=== PATIENT | female | born 1990 | race Caucasian/White ===

== ENCOUNTER 2023-01-19 14:20 | Outpatient (OUT) | payer OTHER, SELFPAY ==
--- NOTE | 2023-01-19 16:07 | MISC_ITS ---
CONSULTATION DATE: ??01/19/2023 TO:? Mireille RUBY Varela CHIEF COMPLAINT:? Left lower back pain. HISTORY:? She reports the pain as being 5-7/10 pain, sharp in character, increased with activities such as standing, walking and performing transitioning maneuvers.? She feels most comfortable in the semi-recumbent position.? She denies any change in bowel and bladder habits or new sensorimotor change in the lower extremities. ? EXAMINATION:? Notable for patient having no clinical radiculopathy or myelopathy involving the lower extremities on today?s visit.? Patient did have severe pain with lumbar facet joint loading maneuvers on the left side at L4-5, L5-S1 with associated myofascial spasm of the lumbar paravertebral muscles.? We have also noted that the patient had significant myofascial spasm of the left hip flexors and extensors. IMPRESSION:? Our impression is patient has chronic pain secondary to lumbosacral spondylosis with facet joint loading pain clinically on the left side at L4-5, L5-S1, with associated myofascial spasm involving the left hip flexors and extensors, with reduced range of motion. ? RECOMMENDATIONS:? Our recommendation is to proceed with a diagnostic left sided L4-5, L5-S1 facet joint injection under fluoroscopic guidance.? I have asked her to change her Motrin to 800 mg around the clock from 800 mg p.r.n., and lastly physical therapy to address her left hip issues.? As part of providing excellent, safe, comprehensive care, the following was completed at our patient's visit: 1. A medication reconciliation and review to ensure accurate knowledge of current/active medications, including asking our patients to inform us about any [id number] medications or herbal remedies/nutritional supplements/alternative remedies. 2. A review to specifically ensure our patients have had annual screening for: elevated body mass index (BMI, see intake chart for exact total), tobacco use, screening for depression, and screening for unhealthy alcohol use.? When screening is concerning, patients are provided with education and the specific recommendation to discuss the concerning health issue and treatment options with their primary care provider. DESIRAE
== END 2023-01-19 14:21 ==
LOC: PM 14:21
PROVIDERS: PCP Nurse Practitioner; Visit Provider Anesthesiology Pain Medicine
DX: M54.50 Low back pain, unspecified (principal); G89.29 Other chronic pain; M47.817 Spondylosis without myelopathy or radiculopathy, lumbosacral region; M62.838 Other muscle spasm
CPT/HCPCS: G0463

== ENCOUNTER 2023-03-30 09:29 | Day surgery (SDC) | payer OTHER, SELFPAY ==
[2023-03-30 09:45] LABS: HCG Qualitative NEGATIVE (NEGATIVE)
[2023-03-30 09:59] VITALS: BP 92/71; PULSE 83; RESP 16; TEMP 36.8; O2SAT 99
[2023-03-30 10:53] VITALS: RESP 20
[2023-03-30] MEDS: BUPIVACAINE HCL 0.25% PF 25 MG/10 ML VIAL 5 ML INJ (10:56)
[2023-03-30 10:57] VITALS: BP 112/72; BP 117/71; PULSE 72; PULSE 73; O2SAT 98; O2SAT 99
--- NOTE | 2023-03-30 11:12 | P.ON_ITS ---
Date of procedure: 03/30/23 Pre-op diagnosis: lumbar spondylosis Post-op diagnosis: same as pre-op Procedure: Left lumbar 4/5, 5/S1 facet injection Under fluoroscopic guidance Solution injected: 2millilitersMarcaine 0.25% Anesthesia :none Immediate complications none Time out process compliant After informed consent obtained from the patient placed in the Prone proposition . area was prepped and draped in a sterile fashion using betadine. 25 gauge spinal needle inserted over each of the above mentioned target areas . [place] were directed towards the target under fluoroscopic guidance . after encountering each of the targets , no indication of intravascular intraneuronal or intrathecal needle tip placement. Then 0 .5 to 1 Milliliter was injected at each level. [place] removed postoperatively. patient transferred to recovery in stable condition to be discharged home after meeting criteria Anesthesia: Local Surgeon: Sadie Galvez Condition: stable
== END 2023-03-30 11:03 | disposition home or self-care (01) ==
LOC: SURGOUT 09:29
PROVIDERS: PCP Nurse Practitioner; Visit Provider Anesthesiology Pain Medicine
DX: M47.816 Spondylosis without myelopathy or radiculopathy, lumbar region (principal)
CPT/HCPCS: 36415; 64493; 64494; 84703

== ENCOUNTER 2023-04-14 13:51 | Outpatient (OUT) | payer OTHER, SELFPAY ==
--- NOTE | 2023-04-14 14:08 | PM.CN ---
Consult Note: HPI Data of Consult Patient: known to practice within the last 3 years Requesting Physician: Chandrika Wilson NP Primary Care Provider: Mireille Varela Consult Narrative Reason for consult: f/u left l4/5 l5/s1 facet injection Narrative: Destini Still a pleasant 33 year old female presents for evluation of chronic low back pain. Patient recently underwent a left sided L4/5 L5/1 facet injection with 90% pain relief and functional improvement immediately following and for hours after the injection. Patient would like to proceed with left l4/5 l5/s1 facet injection #2 working towards thermal RFA. Today rating pain 5/10 while on gabapentin 300mg HS. cc:: CC: Chandrika Wilson NP Review of Systems ROS Status of ROS 10 or more systems reviewed and unremarkable except as noted in history and below Musculoskeletal Reports: back pain PFSH PFSH Surgical History Meds Home Medications and Allergies Home Medications Medication Instructions Recorded Confirmed Type gabapentin 300 mg capsule 300 mg PO DAILY 01/19/23 03/30/23 History ibuprofen 800 mg tablet 800 mg PO TID PRN pain 01/19/23 03/30/23 History Allergies Allergy/AdvReac Type Severity Reaction Status Date / Time No Known Drug Allergies Allergy Verified 03/30/23 09:57 Exam Constitutional Documenting provider has reviewed patient's vital signs: yes Common normals: no apparent distress, average body habitus, oriented x3, no limitations, healthy appearing, alert and well nourished General appearance: cooperative [facility] Common normals: normocephalic, hearing grossly normal bilaterally and moist oral mucous membranes Head and scalp: normocephalic Eye Common normals: PERRL Pupil: PERRL Neck & C-Spine Common normals: full ROM General: normal visual inspection Chest Common normals: inspection of chest normal Respiratory Common normals: normal respiratory effort, no retractions and no use of accessory muscles Back & Pelvis Lumbar spine/lower back: ROM limited, pain with ROM, paraspinal muscle tenderness and straight leg raise negative bilaterally Pelvis: buttocks normal Sacroiliac joints: SI joints normal Other: positive facet loading L sided pain. predominately axial low back pain without radiculopathy Extremity Common normals: normal to inspection and full ROM Neuro Common normals: oriented x3, CN's II-XII intact bilaterally, moves all extremities, no focal motor deficits, no sensory deficits noted, deep tendon reflexes 2+ bilaterally and gait normal Sensorium/orientation: alert Motor exam: strength 5/5 throughout and no movement abnormalities noted Psych Common normals: mental status grossly normal, thought process normal, cooperative, affect normal, speech normal and activity/motor behavior normal Speech: normal speech Thought process: normal thought process Results Additional Findings Additional findings: I have checked an [place]AR[place] report on this patient today and there are no aberrancies noted in the prescribing history.?? A drug screen was completed and reviewed within the last year, and if there has not been a drug screen completed we ordered one today to monitor higher risk, state monitored pain medication use. As part of providing excellent, safe, comprehensive care, the following was completed at our patient's visit: 1. A medication reconciliation and review to ensure accurate knowledge of current/active medications, including asking our patients to inform us about any [id number] medications or herbal remedies/nutritional supplements/alternative remedies. 2. A review to specifically ensure our patients have had annual screening for: elevated body mass index (BMI), tobacco use, screening for depression, and screening for unhealthy alcohol use. When screening is concerning, patients are provided with education and the specific recommendation to discuss the concerning health issue and treatment options with their primary care provider. The patient has had over 3 months of moderate to severe low back pain with functional impairment and inadequate response to conservative care including NSAIDS (unless there are contraindication such as concurrent blood thinners), multiple oral or topical pain medications, and home exercise program/physical therapy.? Patient has completed >6 weeks of guided home exercise program and/or formal physical therapy program without relief of their symptoms.? I have reviewed the imaging of the lumbar spine and no red flags were identified.? The imaging reveals radiographic findings consistent with lumbar facet arthropathy. The Oswestry Disability Index was completed, and the patient scored a 22%.? The patient noted the following:?? moderate pain, pain that interferes with ADLs, pain that restricts lifting, pain that interferes with travel We discussed the risks and benefits of the procedure with the patient, and we are NOT planning on using sedation as outlined in the guidelines from Medicare unless there is a documented reason that sedation would be strongly recommended.?? The procedure will be completed with fluoroscopic guidance.? Assessment and Plan Assessment and Plan (1) Lumbar spondylosis: Plan proceed with Left l4/5 l5/s1 facet injection #2 under fluoroscopy working towards thermal radiofrequency ablation for pain and functional improvement f/u after procedure
== END 2023-04-14 13:52 | disposition home or self-care (01) ==
LOC: PM 13:51
PROVIDERS: PCP Nurse Practitioner; Visit Provider Nurse Practitioner
DX: M47.816 Spondylosis without myelopathy or radiculopathy, lumbar region (principal); Z79.891 Long term (current) use of opiate analgesic; M79.18 Myalgia, other site
CPT/HCPCS: G0463

== ENCOUNTER 2023-08-05 07:59 | Day surgery (SDC) | payer OTHER, SELFPAY ==
[2023-08-05 08:30] LABS: HCG Qualitative NEGATIVE (NEGATIVE)
[2023-08-05 08:39] VITALS: BP 98/66; PULSE 70; RESP 16; TEMP 37; O2SAT 99
[2023-08-05 09:41] VITALS: BP 98/63; PULSE 65; RESP 18; O2SAT 94
[2023-08-05 09:42] VITALS: BP 102/65; PULSE 69; RESP 18; O2SAT 97
[2023-08-05] MEDS: BUPIVACAINE HCL 0.25% PF 25 MG/10 ML VIAL 3.5 ML INJ (09:44)
--- NOTE | 2023-08-05 10:37 | W.PM.PROCNOT ---
Date of procedure: 08/05/23 Pre-op diagnosis: Lumbar spondylosis Post-op diagnosis: same as pre-op Procedure: Left lumbar 4/5, 5/Sacral 1 facet injection Under fluoroscopic guidance Solution injected: 2millilitersMarcaine 0.25% Anesthesia :none Immediate complications none Time out process compliant After informed consent obtained from the patient placed in the Prone proposition . area was prepped and draped in a sterile fashion using betadine. 25 gauge spinal needle inserted over each of the above mentioned target areas . [place] were directed towards the target under fluoroscopic guidance . after encountering each of the targets , no indication of intravascular intraneuronal or intrathecal needle tip placement. Then 0 .5 to 1 Milliliter was injected at each level. [place] removed postoperatively. patient transferred to recovery in stable condition to be discharged home after meeting criteria Anesthesia: Local Surgeon: Sadie Galvez Condition: stable
== END 2023-08-05 09:46 | disposition home or self-care (01) ==
LOC: SURGOUT 08:00
PROVIDERS: PCP Nurse Practitioner; Visit Provider Anesthesiology Pain Medicine
DX: M47.816 Spondylosis without myelopathy or radiculopathy, lumbar region (principal)
CPT/HCPCS: 36415; 64493; 64494; 84703

== ENCOUNTER 2023-08-12 15:05 | Outpatient (OUT) | payer OTHER, SELFPAY ==
--- OUTSIDE RECORDS SUMMARY | 2023-08-12 15:08 | XMS_ITS | CCD ---
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 VnwX81hLLxKCkaJs6dl2G9 w695BQWuHQGlvG21Wz8xpI ogMTBwdCBU rI8defulk9jktetyXoFtRX JtEJm4YDg9XRXfuPsbLsDy GDK4DyR3TCV3oNUcmQ2xmC dyhakcvB4e Oyc+I14ewM8nURR5ACU1qq nxICIadvMsFL99KW41V2Nd PjwvdGFibGU+PGRpdiBzdH seIL7uNjLf p0fnm8LgKCqsI7ScLMOlTZ irPst8FGOnBEB3uLZ9hZ9m FXIfBVupb7G8aYX6R6Wszu Xqil3ix6wq HOYrMNmfR36huYUio1K5PP BugYW0SKJyvWkoYiNywI36 Oyc+QWPbdHsqz4BnEgbgj9 qct3fepPw7 FkLhUXHevhCvpImmMEK1n0 HpJq69W73cLGvjOUKyPTSt RQExNIEroRbtyp8seC3aKz 8+PGNvbCB3 cKH4dE7hOQGlLmP5VSopM8 70YkKyoSEaTyelz1ive8gu lBv5WdTvQZFkwjHhbRmcVM E6z8XaGn02 T27vLGvhUMGrYEBgJSWlIR DrxKtati6riJ8tKo5+PC9j q0duqu17yQ49qTL+PHRkIH K9hYqkYUir ACOmiO0nLXnaIbQ3DNItDh MplH44zXRuISepMm1tkKkt lAohVE2iYAOwljput774Oa Btp2hbQYHg vJTtQNxkWHG6F61rq4D9JN QiKRWlZGB6nMW3xW5twIjs bjogbGVmdDsgdmVydGljYW scBJjqM449 IHRvcDsnPlBhdGllbnQgTm VnNOv7S0DmPky5TXNssDtv AA7bbZWsMJnsZz2ulUqxqI kaPK2tOGGv eqjab831ZuYha1pcZFCqqQ BcRIhsLHP9E77nf8Y9ENYq HGQwRXQ9jHT0bQ8ilAlbkn ogbGVmdDsg drMhjXbjCEymCSacG354OE RvcDsnPkJpcnRoIERhdGU6 WZ45MM52kWWoc4A3cDG0T4 BhZGRpbmct oinrgYT5GUDbTTNzpU58Ba 6raZcmAg7ySROhCAO8SOPf uGZrF8SbpL4gZyHpSNOfFB PhM5ZwuDSd MGxeI779AJvsDmG9VIBvul LyX6YgIUQilNecPhO8l2U7 Vy6JJ6G5EB15IG14qVWnw9 Z2uNT4S1Zw PUYgmhtlliuoxAU0TCWsOV XqfB91Dl7lqUnaLd3jXORp BVL0LGXzzASgG5ZcrV5sIi AjMDAwMDAw Y1MqoPYbRMxzS919IDzlNw Q3CXVdewZwS8WnYJWfmLto QtL4l7Z0Up7BXZk0VH29HF 38aCLfm7W6 iLV5N2XxPLBwvscgbfhliR X4QNKpIZWpkN45Rs6lnAim Sm4cXFDuNZD3KCMfkQJrX6 SsjP6kMvFh GQHxMOXqR9ImuDPoKZdcW5 06KDxuYjY3ZQUnriQvV3Ut WJIdiZykOsF3m5G0Wp8KKJ OdKE47JRT9 wDA7WX81EF12W0UwOqpnaZ FibGU+PHRhYmxlIHdpZHRo FHozPFDnOxFygRjwXW9nRr 9yZGVyLWNv pAfzuROyGcFtu0xnNUZwNC qtVD7zaFshD2GauNR2RGOl a7b0Yr22G82qK1PekLI+PG MxpWE3yIX7 aY8aQkEuUqM0EKqsH671Du IreKNkLjvaw9zke3mygIq1 QfC3QAPrloJxsAzbUWE0l2 FeMd96F24p IHdpZHRoPSIxNSUiIHZhbG npqf1gvQ8iKo6+PGNvbCB3 kGF8uW0qDdUdOqM1SSbiK1 49InRvcCIv Skvuw5csk9zbuGl3IoKvBF PecwFijMtyMBP9i3AdWk07 Y6ZbmAirw5HkSlq2qe51qH Ase9E8rAZ0 X1JlWXQtdqijfVOkaQheOK 7fMATpfyiqLVQrzX6vPWRk Q4d4GnDyUtA8LYetW8Ytqk K9GGWtvPJw RYwtEAM8B89vo1D3EAKpGJ IkHBV2dEQ0bY9caUybtbed bGVmdDsgdmVydGljYWwtYW ixY808HOTy iUgiANPkiA2jVKPwzVGcgW beMR0aMUNumvkcGylIZpPB RSwgQlJJVFRBTlkgTDwvdG Q+PHRkIHN0 fVayNLaiUEAybM4pZZDhS6 w0OhNbXlX7IRoyF0HtTPGh kbceJy70cB2wBjCcXlG4HW puA9FjyoV9 XGBzgYVqYOjzHZU6P36il9 I5SVIrMUFbCHB5dED9xB0y bGlnbjogbGVmdDsgdmVydG ljYWwtYWxp B568GZEhgHkhJqO6ErRqBs X5FSu9O1PtFmw8KSYywKkg RB0qxSQeNYahAi9ubKszoQ leTQ1vRBAb wocvDYCglS7yLUKozFOuhO hkKE9uVPBkdkenw696NdCy IUM8WJEnxWMoN2VaaL8dKe AjMDAwMDAw W7UjiNEbCCnuC174YPdwZi X1WIYhyhVhR1HhLFOgmSdu GqY6p8Z4Dt7bAgZYTDUvez wvdGQ+PHRk YXK7nFnmYMplLUBkbP0sAR SdQ8j0QbWeCmT9QVwrB5Lp YXQjrlilFp13dA0tCbReLl E7EMquM6Zz ymC3JLBsmOYaQNyoQMX2E1 2ag8J4IVVwMYJxOTA9dZC5 rH5gaDdrztudcOWxuIseae VydGljYWwt QEfqN661GKUnwKlyZtIhqF FsZTwvdGQ+HYUfLKA5wDpk EOvbLBIkfU2mEDSmB1c1Bw JpAwZ6MNgb D1FtIUBrvyhyGr46rC0dZc QuIbM1RIiwP1LrvaY6QCIo wMQrRLfbJEV2O04tm6I7DH MwMDAwMDA7 vZD2eH6fvUemrfawvQZwjY ylaoGoeMzgIBpaDYnaW988 HWNkyXqoGcMpHPShUE6oxK wvdGQ+PC90 ew45Z3LwXzwmZfc4KHEwIW E9uBD2xE8fSSXvTJbxl4O5 xBS3I5YhokWnvv1sb0ojKB ReIQluV42n xAZjj3L9THDtmXS9BAVuhC poKrMwjY96Odg+PGNvbGdy n9YcOvhnp4oke8keqHr8Vm MwJSIgdmFs qIcbEBT7k3JwRn17B16dUU dpZHRoPSIzMCUiIHZhbGln hz8ciF8oVp4+YDKkrRX1zY V6bK5aMqGw YgP6UDclC370KoLrrIYpAh dcp6gtl1bhoRm1NuUmNLLg jpHoqDdcPYS8z2PuPd17B9 LgqEfkl6Cp Bgv9zp16uXDel0P6mKY3U5 FdOBGxbnujvICtbDljJM9l OKUhocgcEUIarS2wVXDsO7 l7EzPfMtR5 GVzjV8MnfuI4FFQfpTDgUO NrpRYGlI3mijmjq8tjcbax MnAvWQPqZTw2EQn9TRQbcY duOiBsZWZ0 EdY7FGN8cNBxpL0ifFzwdx tutB3cAjx+QTu8e6ywaPDo FV3hkCT5HQ56JJ55bONtj4 U6nFW9P2Pg DQWvddbvdpklkWE9TGIcDT MaxP39Uk6eoWkoZt6bSWOz GCI3UOZfuUTtM6RrlA7kBk AjMDAwMDAw N0PhnUDaMSeyZ958QXkkUj R2YDColzUpQ9ByYFQwrZgg ItW8p8D4To7ETO74GP54DG 54dAEkz6N2 cYL9E7XoUCPcqgugbnnphS G9XUGgEWQisZ32Kz3unJxg Pl6zZHSbGHJ2XNKniMZnF2 KcfI6eFpXo GUOsEMHsH9RveSNpAElbZ0 29ZCvvYvN8IFYzioIjP1Lm HJVvmIfdNnY1c4Z6Tx9ZVs 22EV24WA84 yLWyg6X2dAC9S5JkJDDsmu cuavmkdGK3LIIdOWSxdG03 Ip7hzTyxVq3cIMKjJJT3EQ SddGHzN4Ev sN9kYcGlUGJyKYNoM8QecT NbCRjuY095JYpeLhT6XQVh qrEsV9LmYFNkrJapZaX4c5 X1Dx6HDXks jpu2J0TsMpupzVT+PC90YW QmJP03zEFbdLMye0kslCf7 NtMtZNBzPGB3pLnnSAbis1 UiJTFeR74c bGFw (more content not included)... [facility] Discharge Instructionson Discharge Instructions [id number] 0CD:127 [facility] XR Hip 2-3 Views Left + Pelv maliha 09-04-2022 XR Hip 2-3 Views Left + Pelvis Exam Date/Time: 09/03/2022 19:08 EST Reason for Exam: Pain, Non Traumatic Report IMPRESSION: NEGATIVE PELVIS AND LEFT HIP. CLINICAL HISTORY: Pain, Non Traumatic COMMENT: 3 views. The bones of the pelvis are unremarkable, without evidence of fracture. No joint space narrowing is noted at the left hip, but there is minimal marginal hypertrophic lipping of the acetabulum and femoral head. The left hip is otherwise unremarkable. No fracture nor dislocation is evident. Of incidental note, there is a small metallic clip projecting in the mid pelvis. There has been no significant change when compared to the prior exam on 02/03/2021. FINAL REPORT Dictated: 09/04/2022 8:12 am Dewey Allred M.D. Signed (Electronic Signature): 09/04/2022 8:12 am Signed by: Dewey Allred M.D. Transcribed by: DP Technologist: DARIUS [facility] Consent for Treatmenton 08-16 Consent for Treatment [id number] 0CD:127 [facility] ED Clinical Summaryon 2022 ED Clinical Summary [place] [id number] ED Clinical Summary Person Information Name: DESTINI STILL [facility]a/[facility] Age: 32 Years : 1990 Sex: Female Language: Romanian PCP: Estelle Eubanks MD Marital Status: Phone: [phone] Visit Id: Visit Reason: Leg pain-swelling; Hip pain-swelling; LEFT LEG PAIN Speciality: Acuity: 4 Enc Type: Emergency Med Service: Emergency Arrival: 09/03/2022 17:35:53 Discharge: 09/03/2022 19:50:05 LOS: 000 02:15 Checkin: 09/03/2022 17:35:53 Checkout: 09/03/2022 19:50:05 Dispo Type: Home (Routine DC) EVENTS: Event Name Event Status Request Date/Time Start Date/Time Complete Date/Time Arrive Complete 09/03/2022 17:35:53 09/03/2022 17:35:53 09/03/2022 17:35:53 Document Home Meds Request 09/03/2022 17:35:53 Triage Complete 09/03/2022 17:35:53 09/03/2022 17:40:58 09/03/2022 17:40:58 Bed Assign Complete 09/03/2022 17:39:02 09/03/2022 17:39:02 09/03/2022 17:39:02 Dr Exam Complete 09/03/2022 17:39:02 09/03/2022 17:49:47 09/03/2022 17:49:47 RN Exam Complete 09/03/2022 17:39:02 09/03/2022 17:41:59 09/03/2022 17:41:59 Registration Complete 09/03/2022 17:39:47 09/03/2022 17:39:47 09/03/2022 17:39:47 Reg Complete Request 09/03/2022 17:39:47 Reg Bed Request Complete 09/03/2022 17:39:47 09/03/2022 17:39:47 09/03/2022 17:39:47 Registration Complete 09/03/2022 17:49:47 09/03/2022 19:13:10 09/03/2022 19:13:10 X-Ray Complete 09/03/2022 18:51:10 09/03/2022 19:08:02 09/03/2022 19:08:29 Meds Admin Complete 09/03/2022 18:53:59 09/03/2022 18:57:23 Dr Exam Complete 09/03/2022 19:07:18 09/03/2022 19:07:18 09/03/2022 19:07:18 Wet Read Request 09/03/2022 19:08:29 Discharge Complete 09/03/2022 19:37:13 09/03/2022 19:50:11 09/03/2022 19:50:11 Transfer Complete 09/03/2022 19:50:11 09/03/2022 19:50:11 09/03/2022 19:50:11 ADDRESS: [address] [place] [phone] PHYS DOC NOTES: MEDICAL INFORMATION: Prescriptions Given: New Medications Printed Prescriptions methocarbamol (Robaxin-750 oral tablet) 1 Tablets By Mouth 3 times a day as needed as needed for pain for 3 Days. Refills: 0. Medications to Continue Taking That Have Changed Printed Prescriptions START: naproxen (Naprosyn 500 mg Tab) 1 Tablets By Mouth 2 times a day for 14 Days. Refills: 0. Other Medications START: naproxen (naproxen 500 mg Tab) 1 Tablets By Mouth 2 times a day. with food. Refills: 0. START: naproxen (naproxen 500 mg Tab) 1 Tablets By Mouth 2 times a day. with food. Refills: 0. Medications to Continue with No Changes Other Medications acetaminophen-hydrocod one ([place] 325 mg-5 mg oral tablet) 1 Tablets By Mouth every 4 hours as needed for pain. Refills: 0. PATIENT EDUCATION INFORMATION: Instructions: Hip Sprain Follow up: With: Address: When: Malik Mauro [address], [place] [id number] Business (1) In 7 days 09/10/2022, only if needed With: Address: When: Estelle Eubanks [address] [place] [address] Business (1) In 3 days DIAGNOSIS: 1:Sprain of left hip [facility] ED Note-Physicianon 09-03-19 ED Note-Physician Basic Information Time Seen: Dariana Zelaya PA-C 09/03/2022 17:49 Chief Complaint pt reports l hip/ leg pasin that she woke up with yesterday. deneid rcent injury. History of Present Illness 32-year-old female presents to the ED complaining of left hip pain. Patient reported the pain starts in her lateral left hip and radiates to her left groin and down her thigh. States she also some pain rating up into her back but the pain does not originate in her back. Patient reports the pain started yesterday when she was cleaning her house doing a lot of bending and lifting. Denies any weakness, numbness, tingling of the extremity her pain is worse with ambulation. No known falls, injury, trauma. Review of Systems All organ systems are reviewed. Pertinent positive and negative findings as mentioned in the HPI. Physical Exam Vitals & Measurements T: 36.1 ?C(Tympanic) HR: 91(Peripheral) RR: 18 BP: 105/71 SpO2: 99% HT: 170 cm WT: 73 kg BMI: 25.26 GENERAL APPEARANCE: Well developed, well nourished, alert and cooperative, and appears to be in no acute distress. HEAD: normocephalic, atraumatic EYES: PERRL, EOMI. Vision is grossly intact. EARS: External auditory canals clear, hearing grossly intact. NOSE: No nasal discharge. THROAT: Oral cavity and pharynx normal. Oral mucosa moist. No inflammation, swelling, exudate, or lesions. NECK: Neck supple, non-tender without lymphadenopathy, masses. CARDIAC: Normal heart sounds, no murmurs. Rhythm is regular. There is no peripheral edema, cyanosis or pallor. Extremities are warm and well perfused. Capillary refill is less than 2 seconds LUNGS: Clear to auscultation without rales, rhonchi, wheezing or diminished breath sounds. ABDOMEN: Positive bowel sounds. Soft, nondistended, nontender. No guarding or rebound. MUSCULOSKELETAL: Adequately aligned spine. ROM intact spine and extremities. Increased pain with ambulation and weightbearing of the left lower extremity. Tenderness of the left lateral hip and over the left IT band. BACK: Examination of the spine reveals normal gait and posture, no spinal deformity, symmetry of spinal muscles, without tenderness, decreased range of motion or muscular spasm NEUROLOGICAL: CN grossly intact. Strength and sensation symmetric and intact throughout. SKIN: Skin normal color, texture and turgor with no lesions or eruptions. Assessment/Plan 1. Sprain of left hip (S73.102A: Unspecified sprain of left hip, initial encounter) Orders: methocarbamol, 750 mg = 1 tab(s), Oral, TID, PRN as needed for pain, X 3 day(s), # 9 tab(s), Refills(s) 0 naproxen, 500 mg = 1 tab(s), Oral, BID, X 14 day(s), # 28 tab(s), Refills(s) 0 orphenadrine, 100 mg = 1 tab(s), Tab-ER, Oral, Once, Stop date 09/03/22 18:53:00 EST, STAT, Start date 09/03/22 18:53:00 EST, 09/03/22 18:53:00 EST XR Hip 2-3 Views Left + Pelvis 32-year-old female presents the ED complaining of left hip pain, atraumatic. In the ED patient is afebrile vital signs are stable, no acute distress. Pain began yesterday after doing a lot of cleaning and lifting and bending. X-ray shows no acute process. Patient's pain treated with muscle walks in the ED. Discharged home with prescription for Naprosyn and Robaxin. Instructed to follow with PCP and with orthopedics if symptoms not improve or if they worsen. She is to return to the ED with any new or worsening symptoms. Patient voices understanding and is agreeable to plan. Medications Administered Given orphenadrine 100 mg ER Tab, 100 mg, Oral Disposition Plan Patient Discharge Condition Improved, stable Discharge Disposition To home Discharge Prescription List Prescriptions Naprosyn 500 mg Tab, 500 mg= 1 tab(s), Oral, BID Robaxin-750 oral tablet, 750 mg= 1 tab(s), Oral, TID, PRN Follow-up With When Contact Information Malik Mauro In 7 days 09/10/2022 EST, only if needed [address] [place] [address] Business (1) Additional Instructions: Estelle Eubanks In [address] [place] [address] Business (1) Additional Instructions: Patient Education Hip Sprain Attestation Patient was treated and evaluated by the Physician Director Organizational. The attending physician was in the Emergency Department at all times and supervised care. The case was discussed with the attending physician and diagnostics were reviewed as needed. Problem List/Past Medical History Ongoing Smoker Historical No qualifying data Medications Inpatient No active inpatient medications Home Naprosyn 500 mg Tab, 500 mg= 1 tab(s), Oral, BID naproxen 500 mg Tab, 500 mg= 1 tab(s), Oral, BID naproxen 500 mg Tab, 500 mg= 1 tab(s), Oral, BID [place] 325 mg-5 mg oral tablet, 1 tab(s), Oral, q4hr, PRN Robaxin-750 oral tablet, 750 mg= 1 tab(s), Oral, TID, PRN Allergies Oranges (swelling of tongue and mouth) Social History Alcohol Substance Abuse Tobacco 10 or more cigarettes (1/2 pack or more)/day in last 30 days Tobacco Use (more content not included)... [facility] Comment on above: Result Comment: Elec tronically Signed By: Dariana Zelaya PA-C\.br\Date and Time Signed: 09/03/22 20:02 EST\.br\Electronically Co-Signed By: Trenton Tipton M.D.\.br\Date and Time Co-Signed: 09/03/22 21:53 EST ED Patient Education Noteon 09-03-2022 ED Patient Education Note Orthopedics Hip Sprain A hip sprain is a stretch or tear in one of the strong bands of tissue (ligaments) that connect the hip bone to the hip joint and pelvis. There are three types of hip sprains: ? A grade 1 sprain is a mildly stretched ligament. This injury causes pain and swelling, but the joint remains stable. ? A grade 2 sprain is a partial ligament tear. This injury may cause the hip joint to become looser (joint laxity). ? A grade 3 sprain is a complete ligament tear. This can make the hip joint unmovable and unstable. What are the causes? This condition may be caused by: ? A sudden injury (acute sprain). This can result from falling or severely twisting your hip joint. These injuries usually involve a large force placed on the joint. ? An overuse injury. This type of injury occurs gradually over time from repeatedly doing activities that put stress on your hip ligaments and muscles. This injury usually involves small amounts of stress repeatedly placed on the joint. What increases the risk? You are more likely to develop this condition if: ? You had a previous hip injury. ? Your hip joint is weak or stiff or you lack flexibility. ? You play contact sports. ? You are at risk for falling. ? You are overweight or do not get regular exercise. ? You try to do too much too quickly. ? You do not warm up properly before activity. What are the signs or symptoms? Symptoms of this condition include: ? Hip pain. ? Pain that gets worse with movement or weight bearing. ? Swelling or bruising at the hip joint. ? Difficulty moving the hip. ? Instability of the hip. ? Tingling or numbness in the leg. ? Muscle weakness in the hip or leg. ? Hearing a noise like a pop or feeling a tear at the time of the injury. How is this diagnosed? This condition may be diagnosed based on: ? Your symptoms and history of an injury or activity that puts stress on the hip. ? A physical exam. The health care provider will check the movement, muscle strength, and stability of your hip. ? Imaging tests such as an X-ray or MRI. These tests can show how severe the sprain is and can be used to rule out a broken bone. How is this treated? At first, this condition may be treated by resting and icing the hip. Your health care provider may also recommend taking a nonsteroidal anti-inflammatory drug (NSAID) to reduce pain and swelling. Additional treatment depends on the severity of the sprain. ? A grade 1 or 2 sprain may only need treatment with rest, ice, and medicine. ? A grade 3 sprain may require surgery to repair the ligament. You may also need to do certain exercises to strengthen muscles and maintain full movement (physical therapy). Follow these instructions at home: Managing pain, stiffness, and swelling ? If directed, put ice on your hip: ? Put ice in a plastic bag. ? Place a towel between your skin and the bag. ? Leave the ice on for 20 minutes, 2?3 times a day. ? Move your toes and bend your knee often to reduce stiffness and swelling. Activity ? Avoid activities that cause hip pain. ? Return to your normal activities as told by your health care provider. Ask your health care provider what activities are safe for you. ? Do physical therapy exercises as told by your health care provider. General instructions ? Take iqpe-wir-xnkklva and prescription medicines only as told by your health care provider. ? Ask your health care provider if the medicine prescribed to you: ? Requires you to avoid driving or using heavy machinery. ? Can cause constipation. You may need to take actions to prevent or treat constipation, such as: ? Drink enough fluid to keep your urine pale yellow. ? Take sike-epe-enqnurp or prescription medicines. ? Eat foods that are high in fiber, such as beans, whole grains, and fresh fruits and vegetables. ? Limit foods that are high in fat and processed sugars, such as fried or sweet foods. ? Do not use any products that contain nicotine or tobacco, such as cigarettes, e-cigarettes, and chewing tobacco. These can delay healing. If you need help quitting, ask your health care provider. ? Keep all follow-up visits as told by your health care provider. This is important. Contact a health care provider if: ? Your pain, bruising, or swelling gets worse. ? You develop any new symptoms. ? Your symptoms are not improving at home. Get help right away if: ? You have excessive swelling. ? Your hip feels very unstable. ? You have a loss of feeling in the hip or leg. ? Your skin changes color in the affected area. Summary ? A hip sprain is an injury to a ligament in your hip. It can range from a mild stretch to a complete tear. ? A hip sprain can be caused by an acute injury or repetitive stress. ? Symptoms include pain, swelling, and bruising. ? Rest and icing are the first treatments for a hip sprain. Other chavo (more content not included)... [facility] ED Patient Summaryon 023 ED Patient Summary [address] [address] Patient Discharge Instructions Person Information Name: DESTINI STILL Age: 32 Years Arrival Date: 09/03/2022 17:35:53 Discharge Diagnosis: 1:Sprain of left hip Primary Care Physician: Raimundo ZIEGLER, Estelle Burnett Provider Information Primary Provider: Trenton Tipton M.D. Advanced [employer] Dehydrator Operator:Dariana Zelaya PA-C The exam and treatment you received in the Emergency Department were for an urgent problem and are not intended as complete care. It is important that you follow up with a doctor, nurse practitioner, or physician?s land surveyor assistant for ongoing care. If your symptoms become worse or you do not improve as expected and you are unable to reach your usual health care provider, you should return to the Emergency Department. We are available 24 hours a day. DESTINI STILL has been given the following list of patient education materials, prescriptions and follow-up instructions: Follow-up Instructions: With: Address: When: Malik Mauro [address] [place] [address] [employer] (1) In 7 days 09/10/2022, only if needed With: Address: When: Estelle Eubanks [address] [place] [address] [employer] (1) In 3 days In the event that this physician does not participate in your insurance network, please consult with your insurance company to find a nearby participating provider. Patient Education Materials: Hip Sprain A MESSAGE TO ALL PATIENTS REGARDING OPIOIDS PRESCRIPTION OPIOIDS: WHAT YOU NEED TO KNOW Prescription opioids can be used to help relieve sopukero-ad-jkdxwy pain and are often prescribed following a surgery or injury, or for certain health conditions. These medications can be an important part of the treatment but also come with serious risks. It is important to work with your healthcare provider to make sure you are getting the safest, most effective care. WHAT ARE THE RISKS AND SIDE EFFECTS OF OPIOID USE? Prescription opioids carry serious risks of addiction and overdose, especially with prolonged use. An opioid overdose, often marked by slowed breathing, can cause sudden . The use of prescription opioids can have a number of side effects as well, even when taken as directed: ? Tolerance?meaning you might need to take more of the medication for the same pain relief ? Physical dependence?meaning you have symptoms of withdrawal when a medication is stopped ? Increased sensitivity to pain ? Constipation ? Nausea, vomiting, and dry mouth ? Sleepiness and dizziness ? Confusion ? Depression ? Low levels of testosterone that can result in lower sex drive, energy, and strength ? Itching and sweating RISKS ARE GREATER WITH: ? History of drug misuse, substance use disorder, or overdose ? Mental health conditions (such as depression or anxiety) ? Sleep apnea ? Older age (65 years and older) ? Avoid alcohol while taking prescription opioids. Also, unless specifically advised by your health care provider, medications to avoid include: ? Benzodiazepines (such as Xanax or Valium) ? Muscle relaxants (such as Soma or Flexeril) ? Hypnotics (such as Ambien or Lunesta) ? Other prescription opioids KNOW YOUR OPTIONS Talk to your health care provider about ways to manage your pain that don?t involve prescription opioids. Some of these options may actually work better and have fewer risks and side effects. Options may include: ? Pain relievers such as acetaminophen, ibuprofen, and naproxen ? Some medication that are also used for depression or seizures ? Physical therapy and exercise ? Cognitive behavioral therapy, a psychological, goal-directed approach, in which patients learn how to modify physical, behavioral, and emotional triggers of pain and stress. IF YOU ARE PRESCRIBED OPIOIDS FOR PAIN: ? Never take opioids in greater amounts or more often than prescribed. ? Follow up with your primary health care provider. o Work together to create a plan on how to manage your pain. o Talk about ways to help manage your pain that don?t involve prescription opioids. o Talk about any and all concerns and side effects. ? Help prevent misuse and abuse o Never sell or share prescription opioids. o Never use another person?s prescription opioids. ? Store prescription opioids in a secure place and out of reach of others (this may include visitors, children, friends, and family). ? Safely dispose of unused prescription opioids: Find your community drug take-back program or your pharmacy mail-back program, or flush them down the toilet, following guidance from the Food and Drug Administration (www.fda.gov/Drugs/Res ourcesForYou). ? Visit www.cdc.gov/drugoverdo se to learn about the risks of opioids abuse and overdose. ? If you believe you may be struggling with addiction, tell (more content not included)... [facility] MICRO OTHER TESTSOrdered By: Yohana Foster on 03-18-2022 Rapid COV Int NEG Ctl Pass (03/18/22 7:41 AM) Normal FT [facility] Rapid COV Int POS Ctl Pass (03/18/22 7:41 AM) Normal FT [facility] S. pyogenes Ag IA.rapid Ql (Throat) Negative (03/18/22 7:41 AM) Normal Negative [facility] SARS-CoV+SARS-CoV-2 (COVID-19) Ag IA.rapid Ql (Resp) Not Detected (03/18/22 7:41 AM) Normal Not Detected [facility] Vital Signs Date Time Vital Sign Value Performing Clinician Facility 08-02-2023 13:55-0500 [facility] 08-02-2023 13:55-0500 Body temperature 97.88 [degF] [facility] 08-02-2023 13:55-0500 Diastolic blood pressure 76 mm[Hg] [facility] 08-02-2023 13:55-0500 Heart rate 88 /min [facility] 08-02-2023 13:55-0500 SaO2% (BldA) [Mass fraction] 97 % [facility] 08-02-2023 13:55-0500 Systolic blood pressure 118 mm[Hg] [facility] 09-03-2022 19:32-0500 Diastolic blood pressure 71 mm[Hg] [facility] 09-03-2022 19:32-0500 Heart rate 91 /min [facility] 09-03-2022 19:32-0500 Mean blood pressure 82 mm[Hg] [facility] 09-03-2022 19:32-0500 Respiratory rate 18 /min [facility] 09-03-2022 19:32-0500 SaO2% (BldA) [Mass fraction] 99 % [facility] 09-03-2022 19:32-0500 Systolic blood pressure 105 mm[Hg] [facility] 09-03-2022 17:39-0500 Body temperature 96.98 [degF] [facility] 09-03-2022 17:39-0500 Diastolic blood pressure 8 mm[Hg] [facility] 09-03-2022 17:39-0500 Heart rate 106 /min [facility] 09-03-2022 17:39-0500 Respiratory rate 18 /min [facility] 09-03-2022 17:39-0500 SaO2% (BldA) [Mass fraction] 100 % [facility] 09-03-2022 17:39-0500 Systolic blood pressure 120 mm[Hg] [facility] 03-18-2022 08:30-0400 Diastolic blood pressure 72 mm[Hg] Brian Blanchard [facility] 03-18-2022 08:30-0400 Heart rate 86 /min Brian Blanchard [facility] 03-18-2022 08:30-0400 Mean blood pressure 87 mm[Hg] Brian Blanchard [facility] 03-18-2022 08:30-0400 Respiratory rate 16 /min Brian Blanchard [facility] 03-18-2022 08:30-0400 SaO2% (BldA) [Mass fraction] 98 % Brian Blanchard [facility] 03-18-2022 08:30-0400 Systolic blood pressure 117 mm[Hg] Brian Santo [facility] 03-18-2022 07:18-0400 Body temperature 98.24 [degF] Brian Santo [facility] 03-18-2022 07:18-0400 Diastolic blood pressure 78 mm[Hg] Brian Blanchard [facility] 03-18-2022 07:18-0400 Heart rate 93 /min Brian Blanchard [facility] 03-18-2022 07:18-0400 Respiratory rate 16 /min Brian Blanchard [facility] 03-18-2022 07:18-0400 SaO2% (BldA) [Mass fraction] 98 % Brian Blanchard [facility] 03-18-2022 07:18-0400 Systolic blood pressure 116 mm[Hg] Brianakira Blanchard [facility] Encounters Encounter Date Encounter Type Care Provider Facility Start: 08-02-2023 End: 08-03-2023 ambulatory HECTOR JEFFRIES Facility: [facility] Start: 08-02-2023 End: 08-02-2023 Patient encounter procedure HECTOR JEFFRIES [facility] Start: 07-26-2023 End: 07-26-2023 ambulatory MIREILLE VARELA Not Available Start: 04-16-2023 ambulatory Mireille Farias lz PUBLICATIONS EDITOR-EARLY HEAD START DIRECTOR Facility[facility] Start: 2023 End: 02-06-2023 ambulatory Dorothy Thomason PA-C Facility:[facility] Start: 01-19-2023 ambulatory NARENDRANATH LAKSHMIPATHY . Facility:[facility] Start: 01-05-2023 ambulatory NARENDRANATH LAKSHMIPATHY . Facility:[facility] Start: 12-22-2022 End: 12-23-2022 ambulatory NARENDRANATH LAKSHMIPATHY . Facility:[facility] Start: 12-21-2022 End: 12-22-2022 ambulatory NARENDRANATH LAKSHMIPATHY . Facility:[facility] Start: 12-15-2022 ambulatory NARENDRANATH LAKSHMIPATHY . Facility:[facility] Start: 12-07-2022 End: 12-08-2022 ambulatory Dorothy Thomason PA-C Facility:[facility] Start: 11-17-2022 End: 11-18-2022 ambulatory NARENDRANATH LAKSHMIPATHY . Facility:[facility] Start: 10-19-2022 End: 10-20-2022 ambulatory EARLY HEAD START DIRECTOR MIREILLE AGUILAStephanie Facility:[facility] Start: 09-16-2022 End: 10-17-2022 ambulatory EARLY HEAD START DIRECTOR MIREILLE AICHHOLZ Facility:[facility] Start: 09-09-2022 End: 09-10-2022 ambulatory EARLY HEAD START DIRECTOR MIREILLE AICHHOLZ Facility:[facility] Start: 09-03-2022 End: 09-03-2022 Emergency department patient visit Jaylinbebe Villareal Danuta Facility:[facility] Start: 09-03-2022 End: 09-03-2022 [facility] Start: 03-18-2022 End: 03-18-2022 Emergency department patient visit Brian Blanchard [facility] Immunizations Immunization Date Immunization Notes Care Provider Fa cili 06-27-2020 influenza virus vaccine, unspecified formulation HECTOR JEFFRIES [facility] 06-01-2019 influenza virus vaccine, unspecified formulation HECTOR JEFFRIES [facility] 06-25-2018 influenza virus vaccine, unspecified formulation HECTOR JEFFRIES [facility] 05-09-2015 influenza virus vaccine, unspecified formulation [facility] 05-09-2015 tetanus toxoid, reduced diphtheria toxoid, and acellular pertussis vaccine, adsorbed [facility] 08-14-2005 hepatitis B vaccine, pediatric or pediatric/adolescent dosage [facility] Payers Date Payer Category Payer Unknown 1989 Unknown [id number] 2.16.84 [id number] 1989 Unknown [id number] 2.16.84 [id number] 1989 Unknown [id number] 2.16.84 [id number] 1989 Unknown [id number] 2.16.84 [id number] 1989 Unknown [id number] 2.16.84 [id number] 1989 Unknown [id number] 2.16.84 [id number] 1989 Unknown [id number] 2.16.84 0.1.326765.3.579.2.593 1989 Unknown [id number] 2.16.84 [id number] 1989 Unknown [id number] 2.16.84 [id number] 1989 Unknown [id number] 2.16. [id number] 1989 Unknown [id number] 2.16. [id number] 1989 Unknown [id number] 2.16. [id number] 1989 Unknown [id number] 2.16. [id number] 1989 Unknown [id number] 2.16.840 .1.129650.3.579.2.1259 1989 Unknown [id number] 2.16.8 40.1.332723.3.579.2.727 1989 Unknown [id number] 2.16.8 [id number] 1959 Unknown [id number] Social History Date Type Detail Facility Start: 02-03-2021 Tobacco smoking status Heavy t obacco smoker (finding) [facility] Sex Assigned At Female [facility] Start: 08-02-2023 Tobacco smoking status Ex-smoker (fi nding) [facility] Functional Status Date Assessment Result Facility 08-02-2023 Functional Status N/A [facility] 09-03-2022 Functional Status N/A [facility] 03-18-2022 Functional Status No [facility] Clinical Notes 03-18-2022 to 12-22-2022 Note Date & Type Note Facility 12-22-2022 Note CONSULTATION CONSULTATION DATE: 12/22/2022 TO: Mireille Varela CNP CHIEF COMPLAINT: Includes left hip pain. HISTORY: Patient returns today complaining of 7/10, sharp pain in her left groin area. She reports the pain is increased with activities such as standing, walking and performing transitioning maneuvers. She feels most comfortable in the semi-recumbent position. She denies any change in bowel and bladder habits or new sensorimotor changes in the lower extremities. EXAM: Her examination is notable for patient having a positive left sided FABERs sign. She also has a fair amount of myofascial spasm involving the left adductor fabiana. She has nothing to suggest facet loading pain clinically or facet joint dysfunction on today's visit. She has significant myofascial spasm again, involving the left adductor fabiana muscle. IMPRESSION: Patient has chronic pain secondary to left hip joint related pain clinically. MRI of the left hip joint did not reveal a labral tear; but, however, she had left hip joint effusion, etiology of which is unclear. RECOMMENDATIONS: I have recommended proceeding with a diagnostic left hip joint injection utilizing only Marcaine 0.25%. We will inject Omnipaque dye to confirm needle tip placement within the hip joint space. She was informed that it is purely a diagnostic procedure. It is important to do a pain diary for the first two hours post procedurally. We did review the results of her EMG nerve conduction velocity study of her left lower extremity, which was remarkable for a left S1 radicular process. However, it is unclear whether the radicular process is causing a significant amount of her left groin pain. I believe these may be two separate processes occurring simultaneously. I went over the details of the procedure with the patient again. All her questions answered. She agrees to proceed with the outlined plan. As part of providing excellent, safe, comprehensive care, the following was completed at our patient's visit: 1. A medication reconciliation and review to ensure accurate knowledge of current/active medications, including asking our patients to inform us about any qvji-rsb-yqsngrd medications or herbal remedies/nutritional supplements/alternative remedies. 2. A review to specifically ensure our patients have had annual screening for: elevated body mass index (BMI, see intake chart for exact total), tobacco use, screening for depression, and screening for unhealthy alcohol use. When screening is concerning, patients are provided with education and the specific recommendation to discuss the concerning health issue and treatment options with their primary care provider. [facility] 12-09-2022 Note Procedure: Neutral, flexion, and extension lateral views of the lumbar spine. Clinical information: 32-year-old female with history of bulging disc. Chronic back pain. Comparison: Lumbar spine MRI from the [facility] 10/19/2022. Findings: Bones: Mild L2-3, L3-4, and L4-5 retrolisthesis on the neutral view that does not substantially changed on flexion and extension views. Intervertebral discs: Intact height. Facet joints: Grossly intact. Soft tissues: Unremarkable. IMPRESSION: No evidence for lumbar spine instability. Final Dictated by: Ada Ander ZIEGLER Dictated DT/TM: 12/09/2022 8:32 am Signed by: Ander Caballero MD Signed (Electronic Signature): 12/09/2022 8:33 am (If Report Is Signed, Electronically Signed in Other Vendor System) [facility] 11-17-2022 Note CONSULTATION CONSULTATION DATE: 11/17/2022 TO: Mireille Varela CNP CHIEF COMPLAINT: Includes severe left sided hip pain. History of present illness, review of systems, past medical/surgical history were obtained and documented on the health questionnaire and is available upon request. HISTORY: She is a 32-year-old female, who reports having pain starting approximately a year and a half ago, but six months ago, she had an acceleration of her pain symptoms, and it progressed gradually to its present state, where it now has altered her quality of life, level of functioning and, at times, her sleep pattern. She describes it as 5-7/10 pain, sharp in character in her lower back, increased with activities such as standing, walking and performing transitioning maneuvers. She feels most comfortable in the semi-recumbent position. She denied any change in bowel and bladder habits or new sensorimotor changes in her lower extremities. EXAM: Notable for the patient having no clinical radiculopathy or myelopathy involving the lower extremities. She had nothing to suggest facet loading pain clinically or SI joint related pain clinically. She did have a positive left sided FABERs sign. She also had pain with left hip adduction against resistance. She also had pain with left hip abduction, also with resistance as well. She had a fair amount of myofascial spasm involving the lumbar paravertebral muscles. Her adductor fabiana was also quite painful and tender and also in spasm . RECOMMENDATIONS: I recommended that she undergo a left hip MRI without contrast to determine if there is a labral tear. I have discontinued Mobic secondary to ineffectiveness. We will obtain urine toxicology screen at next visit. We will trial her on Robaxin 500 mg t.i.d. and we will see the patient back in the office in four weeks' time or sooner if needed. She is also on gabapentin. She does report this does seem to help her pain symptoms as well. She takes 300 mg at h.s. I have asked her to continue with the same. As part of providing excellent, safe, comprehensive care, the following was completed at our patient's visit: 1. A medication reconciliation and review to ensure accurate knowledge of current/active medications, including asking our patients to inform us about any tjsg-hke-lspipoi medications or herbal remedies/nutritional supplements/alternative remedies. 2. A review to specifically ensure our patients have had annual screening for: elevated body mass index (BMI, see intake chart for exact total), tobacco use, screening for depression, and screening for unhealthy alcohol use. When screening is concerning, patients are provided with education and the specific recommendation to discuss the concerning health issue and treatment options with their primary care provider. [facility] 09-09-2022 Note PROCEDURE: XR HIP LT 2 3V WO PELVIS HISTORY: Lumbar radiculopathy ; acute low back and left groin pain; no known injury COMPARISON: None. FINDINGS: BONES:No fracture, acute abnormality, or significant arthropathy. SOFT TISSUES:No visible soft tissue swelling. EFFUSION:None visible. OTHER: Negative. IMPRESSION: 1. No acute bone abnormality or significant degenerative changes. Electronically authenticated by: MICHELLE SHEPPARD Date: 2022-09-09 16:00 [facility] 09-03-2022 Hospital Discharg e instructions Patient Education 09/03/2022 19:50:11 Hip Sprain Hip Sprain A hip sprain is a stretch or tear in one of the strong bands of tissue (ligaments) that connect the hip bone to the hip joint and pelvis. There are three types of hip sprains: A grade 1 sprain is a mildly stretched ligament. This injury causes pain and swelling, but the joint remains stable. A grade 2 sprain is a partial ligament tear. This injury may cause the hip joint to become looser (joint laxity). A grade 3 sprain is a complete ligament tear. This can make the hip joint unmovable and unstable. What are the causes? This condition may be caused by: A sudden injury (acute sprain). This can result from falling or severely twisting your hip joint. These injuries usually involve a large force placed on the joint. An overuse injury. This type of injury occurs gradually over time from repeatedly doing activities that put stress on your hip ligaments and muscles. This injury usually involves small amounts of stress repeatedly placed on the joint. What increases the risk? You are more likely to develop this condition if: You had a previous hip injury. Your hip joint is weak or stiff or you lack flexibility. You play contact sports. You are at risk for falling. You are overweight or do not get regular exercise. You try to do too much too quickly. You do not warm up properly before activity. What are the signs or symptoms? Symptoms of this condition include: Hip pain. Pain that gets worse with movement or weight bearing. Swelling or bruising at the hip joint. Difficulty moving the hip. Instability of the hip. Tingling or numbness in the leg. Muscle weakness in the hip or leg. Hearing a noise like a pop or feeling a tear at the time of the injury. How is this diagnosed? This condition may be diagnosed based on: Your symptoms and history of an injury or activity that puts stress on the hip. A physical exam. The health care provider will check the movement, muscle strength, and stability of your hip. Imaging tests such as an X-ray or MRI. These tests can show how severe the sprain is and can be used to rule out a broken bone. How is this treated? At first, this condition may be treated by resting and icing the hip. Your health care provider may also recommend taking a nonsteroidal anti-inflammatory drug (NSAID) to reduce pain and swelling. Additional treatment depends on the severity of the sprain. A grade 1 or 2 sprain may only need treatment with rest, ice, and medicine. A grade 3 sprain may require surgery to repair the ligament. You may also need to do certain exercises to strengthen muscles and maintain full movement (physical therapy). Follow these instructions at home: Managing pain, stiffness, and swelling If directed, put ice on your hip: ?Put ice in a plastic bag. ?Place a towel between your skin and the bag. ?Leave the ice on for 20 minutes, 2 3 times a day. Move your toes and bend your knee often to reduce stiffness and swelling. Activity Avoid activities that cause hip pain. Return to your normal activities as told by your health care provider. Ask your health care provider what activities are safe for you. Do physical therapy exercises as told by your health care provider. General instructions Take qtdz-fgc-waovysb and prescription medicines only as told by your health care provider. Ask your health care provider if the medicine prescribed to you: ?Requires you to avoid driving or using heavy machinery. ?Can cause constipation. You may need to take actions to prevent or treat constipation, such as: ?Drink enough fluid to keep your urine pale yellow. ?Take rmmo-ebd-fhjyfbb or prescription medicines. ?Eat foods that are high in fiber, such as beans, whole grains, and fresh fruits and vegetables. ?Limit foods that are high in fat and processed sugars, such as fried or sweet foods. Do not use any products that contain nicotine or tobacco, such as cigarettes, e-cigarettes, and chewing tobacco. These can delay healing. If you need help quitting, ask your health care provider. Keep all follow-up visits as told by your health care provider. This is important. Contact a health care provider if: Your pain, bruising, or swelling gets worse. You develop any new symptoms. Your symptoms are not improving at home. Get help right away if: You have excessive swelling. Your hip feels very unstable. You have a loss of feeling in the hip or leg. Your skin changes color in the affected area. Summary A hip sprain is an injury to a ligament in your hip. It can range from a mild stretch to a complete tear. A hip sprain can be caused by an acute injury or repetitive stress. Symptoms include pain, swelling, and bruising. Rest and icing are the first treatments for a hip sprain. Other treatments depend on the severity of the sprain. This information is not intended to replace advice given to you by your health care provider. Make sure you discuss any questions you have with your health care provider. Document Released: 03/23/2019 Document Revised: 11/23/2019 Document Reviewed: 03/23/2019 [facility] Patient Education 2020 [employer]. Follow Up Care 09/03/2022 17:37:19 With:Malik Mauro Address: [address] [place] [id number] Business (1) When:09/10/2022 19:37:09 only if needed With:Estelle Eubanks Address: [address] [place] [id number] [employer] (1) When:Within 3 Day(s) [facility] 09-03-2022 Evaluation + Plan note Extrac nerissa from: Title:ED Note Author:Garcia ARVIZU, Dariana Pickett Rosalino e:09/03/22 1. Sprain of left hip (S73.1 02A: Unspecified sprain of left hip, initial encounter) Orders: methocarbamol, 750 mg = 1 tab(s), Oral, TID, PRN as needed for pain, X 3 day(s), # 9 tab(s), Refills(s) 0 naproxen, 500 mg = 1 tab(s), Oral, BID, X 14 day(s), # 28 tab(s), Refills(s) 0 orphenadrine, 100 mg = 1 tab(s), Tab-ER, Oral, Once, Stop date 09/03/22 18:53:00 EST, STAT, Start date 09/03/22 18:53:00 EST, 09/03/22 18:53:00 EST XR Hip 2-3 Views Left + Pelvis 32-year-old female presents the ED complaining of left hip pain, atraumatic. In the ED patient is afebrile vital signs are stable, no acute distress. Pain began yesterday after doing a lot of cleaning and lifting and bending. X-ray shows no acute process. Patient's pain treated with muscle walks in the ED. Discharged home with prescription for Naprosyn and Robaxin. Instructed to follow with PCP and with orthopedics if symptoms not improve or if they worsen. She is to return to the ED with any new or worsening symptoms. Patient voices understanding and is agreeable to plan. [facility]08-03-2022 Evaluation + Plan noteExtracted from: Title:ED Note Author:Brian Blanchard DO Date: Acute pharyngitis (J02.9: Ac lower brule pharyngitis, unspecified) Orders: dexamethasone, 10 mg = 2.5 mL, Injection, Oral, Once, Stop date 03/18/22 7:29:00 EDT, STAT, Start date 03/18/22 7:29:00 EDT, 03/18/22 7:29:00 EDT ibuprofen, 600 mg = 1 tab(s), Tab, Oral, Once, Stop date 03/18/22 7:29:00 EDT, STAT, Start date 03/18/22 7:29:00 EDT, 03/18/22 7:29:00 EDT Group A Strep by PCR Rapid COVID Antigen ([facility]) Rapid Strep w/rfx [facility]08-03-2022 Hospital Discharge instructions Patient Education 03/18/2022 08:13:29 Pharyngitis Pharyngitis Pharyngitis is redness, pain, and swelling (inflammation) of the throat (pharynx). It is a very common cause of sore throat. Pharyngitis can be caused by a bacteria, but it is usually caused by a virus. Most cases of pharyngitis get better on their own without treatment. What are the causes? This condition may be caused by: Infection by viruses (viral). Viral pharyngitis spreads from person to person (is contagious) through coughing, sneezing, and sharing of personal items or utensils such as cups, forks, spoons, and toothbrushes. Infection by bacteria (bacterial). Bacterial pharyngitis may be spread by touching the nose or faceafter coming in contact with the bacteria, or through more intimate contact, such as kissing. Allergies. Allergies can cause buildup of mucus in the throat (post-nasal drip), leading to inflammation and irritation. Allergies can also cause blocked nasal passages, forcing breathing through themouth, which dries and irritates the throat. What increases the risk? You are more likely to develop this condition if: You are 5 24 years old. You are exposed to crowded environments such as daycare, school, or dormitory living. You live in a cold climate. You have a weakened disease-fighting (immune) system. What are the signs or symptoms? Symptoms of this condition vary by the cause (viral, bacterial, or allergies) and can include: Sore throat. Fatigue. Low-grade fever. Headache. Joint pain and muscle aches. Skin rashes. Swollen glands in the throat (lymph nodes). Plaque-like film on the throat or tonsils. This is often a symptom of bacterial pharyngitis. Vomiting. Stuffy nose (nasal congestion). Cough. Red, itchy eyes (conjunctivitis). Loss of appetite. How is this diagnosed? This condition is often diagnosed based on your medical history and a physical exam. Your health care provider will ask you questions about your illness and your symptoms. A swab of your throat may be done to check for bacteria (rapid strep test). Other lab tests may also be done, depending on the suspected cause, but these are rare. How is this treated? This condition usually gets better in 3 4 days without medicine. Bacterial pharyngitis may be treated with antibiotic medicines. Follow these instructions at home: Take sweq-dwx-qdyizba and prescription medicines only as told by your health care provider. ?If you were prescribed an antibiotic medicine, take it as told by your health care provider. Do not stop taking the antibiotic even if you start to feel better. ?Do not give children aspirin because of the association with Yvonne syndrome. Drink enough water and fluids to keep your urine clear or pale yellow. Get a lot of rest. Gargle with a salt-water mixture 3 4 times a day or as needed. To make a salt- water mixture, completely dissolve -1 tsp of salt in 1 cup of warm water. If your health care provider approves, you may use throat lozenges or sprays to soothe your throat. Contact a health care provider if: You have large, tender lumps in your neck. You have a rash. You cough up green, yellow-brown, or bloody spit. Get help right away if: Your neck becomes stiff. You drool or are unable to swallow liquids. You cannot drink or take medicines without vomiting. You have severe pain that does not go away, even after you take medicine. You have trouble breathing, and it is not caused by a stuffy nose. You have new pain and swelling in your joints such as the knees, ankles, wrists, or elbows. Summary Pharyngitis is redness, pain, and swelling (inflammation) of the throat (pharynx). While pharyngitis can be caused by a bacteria, the most common causes are viral. Most cases of pharyngitis get better on their own without treatment. Bacterial pharyngitis is treated with antibiotic medicines. This information is not intended to replace advice given to you by your health care provider. Make sure you discuss any questions you have with your health care provider. Document Released: 08/02/2006 Document Revised: 07/15/2018 Document Reviewed: 09/07/2017 [facility] Patient Education 2020 [employer]. Follow Up Care 03/18/2022 07:16:27 With:Alicia SEARS Address: [address] [place], [place] [address] [place] [id number] Business (1) When:03/21/2022 08:13:18 Comments:Call the office of your primary care doctor to arrange for follow-up within the above-stated timeframe. Follow-up with your primary care doctor about this ED visit. You should review your labs, imaging, and diagnoses from this ED visit with your primary care physician. If you were prescribed medications you should discuss possible side-effects and drug interactions with your pharmacist. Call 911 or go to the nearest Emergency Department if you develop any new or worsening symptoms. [facility] No data available for this section [facility] No data available for this section [facility] Progress note No data available for this section [facility] Summary Purpose Family History No Family History Records FoundNo Family History Records FoundNo Family History Records Found No data available for this section No Family History Records Found Advance Directives No Advanced Directives Records FoundNo Advanced Directives Records FoundNo Advanced Directives Records FoundNo Advanced Directives Records Found Additional Source Comments Care Team (unrecognized sect ion and content) Personnel Name: Alicia SEARS MD Address: [address] [place] [address] [address] [place] [address]- Personnel Name: Estelle Eubanks MD Address: Address: [address] [place] [address] Personnel Name: Estelle Eubanks MD Address: Address: [address] [place] [address] INFORMATION SOURCE (unrecogn ized section and content) DATE CREATED AUTHOR 12/28/2022 [facility] DATE CREATED AUTHOR AUTHOR'S ORGANIZ ATION 04/07/2023 [facility] DATE CREATED AUTHOR AUTHOR'S ORGANIZ ATION 07/28/2023 [facility] DATE CREATED AUTHOR AUTHOR'S ORGANIZ ATION 08/03/2023 [facility] FOR RECORDS PERTAINING TO PATIENTS WHO ARE OR HAVE BEEN ENROLLED IN A CHEMICAL DEPENDENCY/SUBSTANCEABUSE PROGRAM, SOME INFORMATION MAY BE OMITTED. This clinical summary was aggregated from multiple sources. Caution should be exercised in using it in the provision of clinical care. This summary normalizes information from multiple sources, and as a consequence, information in this document may materially change the coding, format and clinical context of patient data. In addition, data may be omitted in some cases. CLINICAL DECISIONS SHOULD BE BASED ON THE PRIMARY CLINICAL RECORDS. [facility] [employer] [facility]. provides no warranty or guarantee of the accuracy or completeness of information in this document.
--- NOTE | 2023-08-12 15:26 | P.CN_ITS ---
Consult Note: HPI Data of Consult Patient: known to practice within the last 3 years Requesting Physician: Chandrika Wilson NP Primary Care Provider: Mireille Varela Consult Narrative Reason for consult: f/u left l4/5 l5/s1 facet injection Narrative: Destini Still a pleasant 33 year old female presents for evluation of chronic low back pain. Patient recently underwent a left sided L4/5 L5/1 facet injection with 90% pain relief and functional improvement immediately following and for hours after the injection. Patient would like to proceed with left l4/5 l5/s1 facet medial branch thermal RFA. Today rating pain 4/10 while on gabapentin 300mg BID, increased from previous visit by PCP. cc:: CC: Chandrika Wilson NP Review of Systems ROS Status of ROS 10 or more systems reviewed and unremark able except as noted in history and below Musculoskeletal Reports: back pain PFSH PFSH Surgical History H/O excision of ganglion cyst ?Z98.890 - Other specified postprocedural states (ICD-10) History of cholecystectomy ?Z90.49 - Acquired absence of other specified parts of digestive tract (ICD- 10) Meds Home Medications and Allergies Home Medications Medication Instructions Recorded Confirmed Type gabapentin 300 mg capsule 300 mg PO DAILY 01/19/23 08/05/23 History ibuprofen 800 mg tablet 800 mg PO TID PRN pain 01/19/23 08/05/23 History Allergies Allergy/AdvReac Type Severity Reaction Status Date / Time No Known Drug Allergies Allergy Verified 03/30/23 09:57 Exam Constitutional Documenting provider has reviewed patient's vital signs: yes Common normals: no apparent distress, average body habitus, oriented x3, no limitations, healthy appearing, alert and well nourished General appearance: cooperative [facility] Common normals: normocephalic, hearing grossly normal bilaterally and moist oral mucous membranes Head and scalp: normocephalic Eye Common normals: PERRL Pupil: PERRL Neck & C-Spine Common normals: full ROM General: normal visual inspection Chest Common normals: inspection of chest normal Respiratory Common normals: normal respiratory effort, no retractions and no use of accessory muscles Back & Pelvis Lumbar spine/lower back: ROM limited, pain with ROM, paraspinal muscle tende rness and straight leg raise negative bilaterally Pelvis: buttocks normal Sacroiliac joints: SI joints normal Other: positive facet loading L sided pain. predominately axial low back pain without radiculopathy Extremity Common normals: normal to inspection and full ROM Neuro Common normals: oriented x3, CN's II-XII intact bilaterally, moves all extremities, no focal motor deficits, no sensory deficits noted, deep tendon reflexes 2+ bilaterally and gait normal Sensorium/orientation: alert Motor exam: strength 5/5 throughout and no movement abnormalities noted Psych Common normals: mental status grossly normal, thought process normal, cooperative, affect normal, speech normal and activity/motor behavior normal Speech: normal speech Thought process: normal thought process Assessment and Plan Assessment and Plan (1) Lumbar spondylosis: Assessment and Plan: The patient has had over 3 months of moderate to severe lumbar pain with functional impairment and inadequate response to conservative care including NSAIDS (unless there are contraindication such as concurrent blood thinners), multiple oral or topical pain medications, and home exercise program/physical therapy.? Patient has completed >6 weeks of guided home exercise program and/or formal physical therapy program without relief of their symptoms.? I have reviewed the imaging of the lumbar spine and no red flags were identified.? The imaging reveals radiographic findings consistent with lumbar spondylosis The Oswestry Disability Index was completed, and the patient scored a 16% We discussed the risks and benefits of the procedure with the patient. ?The procedure will be completed with fluoroscopic guidance.? Plan left L4-5 L5-S1 facet medial branch thermal RFA under fluoroscopy. The patient had significant relief of over 80%, with increased range of motion, decreased pain with provocative maneuvers, and increased ability to perform ADLs after diagnostic left L4-5 L5-s1 facet medial branch block #1 and #2 .?? f/u 1 month after procedure
== END 2023-08-12 15:06 | disposition home or self-care (01) ==
LOC: PM 15:05
PROVIDERS: PCP Nurse Practitioner; Visit Provider Nurse Practitioner
DX: M47.816 Spondylosis without myelopathy or radiculopathy, lumbar region (principal)
CPT/HCPCS: G0463

== ENCOUNTER 2023-08-24 09:39 | Day surgery (SDC) | payer OTHER, SELFPAY ==
[2023-08-24 09:49] VITALS: BP 98/64; PULSE 87; RESP 16; TEMP 36.2; O2SAT 100
[2023-08-24 10:31] LABS: HCG Qualitative NEGATIVE (NEGATIVE)
[2023-08-24 11:02] VITALS: BP 107/74; BP 110/76; PULSE 70; PULSE 73; RESP 16; RESP 18; O2SAT 98
[2023-08-24] MEDS: LIDOCAINE HCL 2% 400 MG/20 ML MDV 4 ML INJ (11:03)
[2023-08-24] MEDS: BUPIVACAINE HCL 0.25% PF 25 MG/10 ML VIAL INJ (11:03)
[2023-08-24] MEDS: METHYLPREDNISOLONE ACETATE 40 MG/ML VIAL INJ (11:03)
--- NOTE | 2023-08-24 11:54 | W.PM.PROCNOT ---
Date of procedure: 08/24/23 Pre-op diagnosis: Lumbar Spondylosis Post-op diagnosis: same as pre-op Procedure: Left Lumbar 4/5, 5/S1 Radiofrequency ablation Under fluoroscopic guidance Rhizotomy was created using radio frequency ablation at 80?C for 90 seconds 1 to 2 lesions created at each site. Post lesioning injection of 2 mL each of 0.25% Marcaine and 2% lidocaine with Depo-Medrol 40mg. 0.5 to 1 mL injected at each site IV in place no If Intravenous fluids: NS at KVO Anesthesia local 2% lidocaine for Anesthesia Other: Local Timeout process compliant After informed consent obtained.Patient brought to the procedure room placed in the prone position skin overlying the area was prepped and draped in a sterile fashion using betadine. 25 gauge needle was used to create a skin wheal over each of the targeted areas utilizing 2% lidocaine. A rhizotomy needle with a 10 mm active tip was inserted over each of the anesthetized areas and directed towards each of the medial branches accomplished under fluoroscopic guidance. after encountering the same we had positive sensory stimulation, negative motor stimulation was noted. lesions were then created. Post lesioning, steroid solution was injected needles removed. Patient was transferred to recovery room in stable condition to be discharged home after meeting criteria. Anesthesia: Local Surgeon: Sadie Galvez Condition: stable
== END 2023-08-24 11:30 | disposition home or self-care (01) ==
LOC: SURGOUT 09:39
PROVIDERS: PCP Nurse Practitioner; Visit Provider Anesthesiology Pain Medicine
DX: M47.816 Spondylosis without myelopathy or radiculopathy, lumbar region (principal)
CPT/HCPCS: 36415; 64635; 64636; 84703; J0665; J1030

== ENCOUNTER 2023-10-13 14:36 | Outpatient (OUT) | payer OTHER, SELFPAY ==
--- NOTE | 2023-10-13 15:10 | PM.CN ---
Consult Note: HPI Data of Consult Patient: known to practice within the last 3 years Requesting Physician: Chandrika Wilson NP Primary Care Provider: Mireille Varela NP Consult Narrative Reason for consult: f/u left l4/5 l5/s1 facet injection Narrative: Destini Still a pleasant 33 year old female presents for evaluation of chronic low back pain. Patient recently underwent a left L4/5 L5/S1 thermal RFA with 90% improvement ongoing. Patient continues to have moderate to severe left hip/gluteal/groin pain. Pain currently 2/10 increasing to 9/10 with lying on left side, walking, in the evening. improved with lying on right side. cc:: CC: Chandrika Wilson NP Review of Systems ROS Status of ROS 10 or more systems reviewed and unremarkable except as noted in history and below Musculoskeletal Reports: back pain and joint pain PFSH PFSH Surgical History H/O excision of ganglion cyst ?Z98.890 - Other specified postprocedural states (ICD-10) History of cholecystectomy ?Z90.49 - Acquired absence of other specified parts of digestive tract (ICD-10) Meds Home Medications and Allergies Home Medications Medication Instructions Recorded Confirmed Type gabapentin 300 mg capsule 300 mg PO DAILY 01/19/23 08/24/23 History ibuprofen 800 mg tablet 800 mg PO TID PRN pain 01/19/23 08/24/23 History Allergies Allergy/AdvReac Type Severity Reaction Status Date / Time No Known Drug Allergies Allergy Verified 08/24/23 09:54 Exam Constitutional Documenting provider has reviewed patient's vital signs: yes Common normals: no apparent distress, oriented x3, healthy appearing, alert and well nourished General appearance: cooperative [facility] Common normals: normocephalic, hearing grossly normal bilaterally and moist oral mucous membranes Head and scalp: normocephalic Eye Common normals: PERRL Pupil: PERRL Neck & C-Spine Common normals: full ROM General: normal visual inspection Chest Common normals: inspection of chest normal Respiratory Common normals: normal respiratory effort, no retractions and no use of accessory muscles Back & Pelvis Lumbar spine/lower back: normal to inspection, lumbar ROM normal and straight leg raise negative bilaterally Pelvis: buttock abnormal (pain in left gluteus surrounding ischial bursa) Sacroiliac joints: SI joints normal Other: negative facet loading no low back pain pain in areas noted below Back image (female): 1. Extremity Common normals: normal to inspection and full ROM Other: mild tenderness over left GTB, pain over insertion of left IT band Neuro Common normals: oriented x3, CN's II-XII intact bilaterally, moves all extremities, no focal motor deficits, no sensory deficits noted and deep tendon reflexes 2+ bilaterally Sensorium/orientation: alert Motor exam: strength 5/5 throughout and no movement abnormalities noted Psych Common normals: mental status grossly normal, thought process normal, cooperative, affect normal, speech normal and activity/motor behavior normal Speech: normal speech Thought process: normal thought process Results Additional Findings Additional findings: I have checked an OAR[facility] report on this patient today and there are no aberrancies noted in the prescribing history.?? A drug screen was completed and reviewed within the last year, and if there has not been a drug screen completed we ordered one today to monitor higher risk, state monitored pain medication use. As part of providing excellent, safe, comprehensive care, the following was completed at our patient's visit: 1. A medication reconciliation and review to ensure accurate knowledge of current/active medications, including asking our patients to inform us about any [id number] medications or herbal remedies/nutritional supplements/alternative remedies. 2. A review to specifically ensure our patients have had annual screening for: elevated body mass index (BMI), tobacco use, screening for depression, and screening for unhealthy alcohol use. When screening is concerning, patients are provided with education and the specific recommendation to discuss the concerning health issue and treatment options with their primary care provider. Assessment and Plan Assessment and Plan (1) Lumbar spondylosis: (2) Left hip pain: (3) Ischial bursitis of left side: (4) Iliotibial band syndrome, left leg: Plan complete resolution of low back pain from left L4/5 L5/S1 RFA will refer to sports medicine Dr Arenas to assess and treat left hip/gluteal pain, as noted above pain over left ischial bursa and at insertion site of left IT band. mild pain over left GTB start mobic 7.5 mg BID PRN pain f/u after evaluation by Dr Arenas
== END 2023-10-13 14:37 | disposition home or self-care (01) ==
LOC: PM 14:36
PROVIDERS: PCP Nurse Practitioner; Visit Provider Nurse Practitioner
DX: M47.816 Spondylosis without myelopathy or radiculopathy, lumbar region (principal); M25.552 Pain in left hip; M70.72 Other bursitis of hip, left hip; M76.32 Iliotibial band syndrome, left leg
CPT/HCPCS: G0463

== ENCOUNTER 2023-12-15 08:19 | Outpatient (RCR) | payer OTHER, SELFPAY | END 2024-01-07 16:40 | disposition home or self-care (01) | LOC: PT 08:19 | PROVIDERS: PCP Nurse Practitioner | DX: M25.552 Pain in left hip (principal); R26.89 Other abnormalities of gait and mobility; R26.9 Unspecified abnormalities of gait and mobility | CPT/HCPCS: 97110; 97161 ==

== ENCOUNTER 2024-02-28 07:24 | Day surgery (SDC) | payer OTHER, SELFPAY ==
--- NOTE | 2024-02-28 07:37 | FL_ITS ---
[address] [address] Patient Name: ALEXANDRE LIZ MRN: [id number] date: 1990 Sex: F Assigned Patient Location: MRI Current Patient Location: Accession/Order Number: [id number] Exam Date: 02/28/2024 07:45 Report Date: 02/28/2024 09:09 At the request of: JACQUELINE VEGA Procedure: FL guided needle placement EXAMINATION: FL arthrogram hip, FL guided needle placement HISTORY: Left hip pain COMPARISON: No relevant comparison available. TECHNIQUE: An arthrogram was performed under fluoroscopic guidance using non-ionic contrast material in the usual sterile manner after obtaining informed consent. Standard level fluoroscopic mode of operation utilized. FINDINGS: JOINT: Left hip NEEDLE: 25 gauge, 3.5 spinal needle. MEDICATION: 5cc buffered 1% lidocaine for subcutaneous anesthesia 5 mL Omnipaque 300. 5 mL 1% buffered lidocaine. 0.2 mL Dotarem TECHNIQUE: Anterior approach with prior localization of the femoral artery. A single stick was successful in gaining access to the joint space. CLINICAL: 7 out of 10 pain before the injection. 5 out of 10 pain following the injection COMPLICATIONS: None. BONES: Normal. No erosion, osteophyte, fracture, or bony lesion. CARTILAGE: Normal. No visible erosion or interruption. CAPSULE: Normal. No visible capsular laxity or labrum tear. CHI-ARTICULAR: Normal. No visible chi-articular soft tissue abnormality. LOOSE BODIES: None. OTHER: Negative. PLEASE ALSO SEE THE SEPARATE ARTHROGRAM PROCEDURE REPORT. FL/FL guided needle placement IMPRESSION: Technically successful left hip diagnostic arthrogram Electronically authenticated by: NATALIE ESPINO Date: 02/28/2024 09:09
--- NOTE | 2024-02-28 07:37 | FL_ITS ---
The [address] [address] Patient Name: ALEXANDRE LIZ MRN: [id number] date: 1990 Sex: F Assigned Patient Location: MRI Current Patient Location: Accession/Order Number: [id number] Exam Date: 02/28/2024 07:45 Report Date: 02/28/2024 09:09 At the request of: JACQUELINE VEGA Procedure: FL arthrogram hip EXAMINATION: FL arthrogram hip, FL guided needle placement HISTORY: Left hip pain COMPARISON: No relevant comparison available. TECHNIQUE: An arthrogram was performed under fluoroscopic guidance using non-ionic contrast material in the usual sterile manner after obtaining informed consent. Standard level fluoroscopic mode of operation utilized. FINDINGS: JOINT: Left hip NEEDLE: 25 gauge, 3.5 spinal needle. MEDICATION: 5cc buffered 1% lidocaine for subcutaneous anesthesia 5 mL Omnipaque 300. 5 mL 1% buffered lidocaine. 0.2 mL Dotarem TECHNIQUE: Anterior approach with prior localization of the femoral artery. A single stick was successful in gaining access to the joint space. CLINICAL: 7 out of 10 pain before the injection. 5 out of 10 pain following the injection COMPLICATIONS: None. BONES: Normal. No erosion, osteophyte, fracture, or bony lesion. CARTILAGE: Normal. No visible erosion or interruption. CAPSULE: Normal. No visible capsular laxity or labrum tear. CHI-ARTICULAR: Normal. No visible chi-articular soft tissue abnormality. LOOSE BODIES: None. OTHER: Negative. PLEASE ALSO SEE THE SEPARATE ARTHROGRAM PROCEDURE REPORT. FL/FL arthrogram hip IMPRESSION: Technically successful left hip diagnostic arthrogram Electronically authenticated by: NATALIE ESPINO Date: 02/28/2024 09:09
--- NOTE | 2024-02-28 07:37 | MR_ITS ---
The [address] [address] Patient Name: ALEXANDRE LIZ MRN: [id number] date: 1990 Sex: F Assigned Patient Location: MRI Current Patient Location: MRI Accession/Order Number: [id number] Exam Date: 02/28/2024 08:35 Report Date: 03/01/2024 07:42 At the request of: JACQUELINE VEGA Procedure: MR hip LT w con EXAMINATION: MR hip LT w con HISTORY: Left hip pain COMPARISON: No relevant comparison available. TECHNIQUE: A comprehensive examination was performed utilizing a variety of imaging planes and imaging parameters to optimize visualization of suspected pathology. Images were obtained without and/or with IV contrast as indicated by type of examination. FINDINGS: FEMORAL HEAD: Tiny degenerative osteophytes along the articular margins. No fracture, dislocation, or abnormal marrow signal to suggest avascular necrosis. ACETABULUM: No fracture or significant arthropathy. OTHER BONES: Normal appearance of the visualized portion of the pelvis. LABRUM: Subtle step off along the undersurface margin of the superior labrum without convincing tear. EFFUSIONS: Large joint effusion with multiple loose bodies within the joint capsule, largest is approximately 13 mm. BURSAE: No evidence of iliopsoas or trochanteric bursitis. TENDONS: Normal gluteus tendons, iliopsoas tendon, and hamstring origin. MUSCLES: No tear or strain. No inappropriate atrophy. OTHER: Negative. MR/MR hip LT w con IMPRESSION: 1. Large joint effusion containing multiple loose bodies. No appreciable donor site(s). 2. Mild degenerative joint disease. 3. Subtle/small step-off along the undersurface margin of the superior labrum without convincing tear; remote injury/sequela of remote small tear is suspected. Electronically authenticated by: MICHELLE SHEPPARD Date: 03/01/2024 07:42
[2024-02-28] MEDS: LIDOCAINE HCL 15 ML, SODIUM BICARBONATE 2 MEQ INJ (08:20)
--- NOTE | 2024-02-28 08:49 | SUR.PREOP ---
02/21/24 Pt made aware of procedure, date, time, and prep.
== END 2024-02-28 08:35 | disposition home or self-care (01) ==
PROVIDERS: Radiology Diagnostic Radiology; PCP Nurse Practitioner; Visit Provider Physician Assistant
DX: M25.552 Pain in left hip (principal); M70.62 Trochanteric bursitis, left hip
CPT/HCPCS: 27093; 73722; 77002; A9575; Q9967

== ENCOUNTER 2024-04-19 08:16 | Day surgery (SDC) | payer OTHER, SELFPAY ==
--- NOTE | 2024-04-19 08:20 | FL_ITS ---
The [address] [address] Patient Name: ALEXANDRE LIZ MRN: [id number] date: 1990 Sex: F Assigned Patient Location: [place] Current Patient Location: Accession/Order Number: [id number] Exam Date: 04/19/2024 08:30 Report Date: 04/19/2024 10:20 At the request of: MICHELLE GIL Procedure: FL hip inj LT EXAMINATION: FL hip inj LT HISTORY: left trochanter bursitis FLUORO DOSE: (Cannot calculate) mGy Reference air kerma (Ka,r) COMPARISON: No relevant comparison available. TECHNIQUE: An arthrogram was performed under fluoroscopic guidance using non-ionic contrast material in the usual sterile manner after obtaining informed consent. Standard level fluoroscopic mode of operation utilized. FINDINGS: JOINT: Left hip NEEDLE: 25 gauge, 3.5 spinal needle. MEDICATION: 2 mL buffered 1% lidocaine for subcutaneous anesthesia. 2 mL Omnipaque-240 iodinated contrast to visualize the joint space. 80 mg Depo-Medrol,, 4 mL 0.5% Marcaine, and 3 mL Omnipaque 240 injected into the joint space. TECHNIQUE: Anterior approach with prior localization of the femoral artery. A single stick was successful in gaining access to the joint space. CLINICAL: Improvement of joint pain post injection (4/10 preinjection; 0/10 post injection). COMPLICATIONS: None. OTHER: Negative. FL/FL hip inj LT IMPRESSION: 1. Successful left hip injection with decreased pain post injection. Electronically authenticated by: MICHELLE SHEPPARD Date: 04/19/2024 10:20
--- OUTSIDE RECORDS SUMMARY | 2024-04-19 08:20 | XMS_ITS | CCD ---
Author Organization [facility] Care Team Providers Care Technical Support Agent Name Role Phone Alicia SEARS Primary Care Physician [phone] Estelle Eubanks Primary Care Physician LAKSHMIPATHY ., NARENDRANATH Admitting Marquita vailable LAKSHMIPATHY ., NARENDRANATH Attending Marquita vailable AICHHOLZ, COFFEE ROASTER HELPER [place] Primary Care Unavailable AICHHOLZ, COFFEE ROASTER HELPER [place] Admitting Unavailable AICHHOLZ, COFFEE ROASTER HELPER [place] Attending Unavailable AICHHOLZ, COFFEE ROASTER HELPER [place] Primary Care Unavailable AICHHOLZ, COFFEE ROASTER HELPER [place] Consulting Unavailable MITCH MCDUFFIE Consulting Unavailable LAKSHMIPATHY ., NARENDRANATH Admitting Marquita vailable LAKSHMIPATHY ., NARENDRANATH Attending Marquita vailable AICHHOLZ, COFFEE ROASTER HELPER [place] Primary Care Unavailable DR MICHELLE SHEPPARD Consulting Unavailable LAKSHMIPATHY ., NARENDRANATH Consulting Marquita vailable AICHHOLZ, COFFEE ROASTER HELPER [place] Admitting Unavailable AICHHOLZ, COFFEE ROASTER HELPER [place] Attending Unavailable AICHHOLZ, COFFEE ROASTER HELPER [place] Primary Care Unavailable AICHHOLZ, COFFEE ROASTER HELPER [place] Consulting Unavailable DR MICHELLE SHEPPARD Consulting Unavailable AICHHOLZ, COFFEE ROASTER HELPER [place] Admitting Unavailable AICHHOLZ, COFFEE ROASTER HELPER [place] Attending Unavailable AICHHOLZ, COFFEE ROASTER HELPER [place] Primary Care Unavailable LAKSHMIPATHY ., NARENDRANATH Admitting Marquita vailable LAKSHMIPATHY ., NARENDRANATH Attending Marquita vailable AICHHOLZ, COFFEE ROASTER HELPER [place] Primary Care Unavailable LAKSHMIPATHY ., NARENDRANATH Consulting Marquita vailable LAKSHMIPATHY ., NARENDRANATH Admitting Marquita vailable LAKSHMIPATHY ., NARENDRANATH Attending Marquita vailable AICHHOLZ, COFFEE ROASTER HELPER [place] Primary Care Unavailable LAKSHMIPATHY ., NARENDRANATH Consulting Marquita vailable LAKSHMIPATHY ., NARENDRANATH Admitting Marquita vailable LAKSHMIPATHY ., NARENDRANATH Attending Marquita vailable AICHHOLZ, COFFEE ROASTER HELPER [place] Primary Care Unavailable LAKSHMIPATHY ., NARENDRANATH Admitting Marquita vailable LAKSHMIPATHY ., NARENDRANATH Attending Marquita vailable AICHHOLZ, COFFEE ROASTER HELPER [place] Primary Care Unavailable LAKSHMIPATHY ., NARENDRANATH Consulting Marquita vailable Ickes PA-C, Dorothy Mcclure Attending Unav ailable Aichholz OBSTETRICS GYNECOLOGY PHYSICIAN-COFFEE ROASTER HELPER, Mireille Enriquez Primary Care Unava ilable Ickes PA-C, Dorothy Mcclure Attending Unav ailable Aichholz OBSTETRICS GYNECOLOGY PHYSICIAN-COFFEE ROASTER HELPER, Mireille Enriquez Primary Care Unava ilable Aichholz OBSTETRICS GYNECOLOGY PHYSICIAN-COFFEE ROASTER HELPER, Mireille Enriquez Referring Unava ilable Aichholz OBSTETRICS GYNECOLOGY PHYSICIAN-COFFEE ROASTER HELPER, Mireille Enriquez Primary Care Unava ilable Ickes PA-C, Dorothy Mcclure Attending Unav ailable Ickes PA-C, Dorothy Mcclure Attending Unav ailable Aichholz OBSTETRICS GYNECOLOGY PHYSICIAN-COFFEE ROASTER HELPER, Mireille Enriquez Primary Care Unava ilable Aichholz OBSTETRICS GYNECOLOGY PHYSICIAN-COFFEE ROASTER HELPER, Mireille Enriquez Consulting Unava ilable Trenton Tipton Attending Unavailable HECTOR JEFFRIES Attending Unavailable AICHHOLZ, MIREILLE Attending Unavailable AICHHOLZ, MIREILLE Attending Unavailable AICHHOLZ, MIREILLE Attending Unavailable AICHHOLZ, MIREILLE Attending Unavailable Allergies Allergy Classification Reported Allergen(s) Allergy Type Date of Onset Reaction(s) Facility (4 sources) [place] - fruit; Translations: [Oranges] Food allergy swelling of tongue and mouth [facility] NEGATED: Highlighted row has been ruled out! (1 source) Drug allergy [facility] Medications Current Medications Medication Drug Class(es) Dates Sig (Normalized) Sig (Original) acetaminophen 325 mg / HYDROcodone bitartrate 5 mg oral tablet (2 sources) Opioid Agonist Start: 02-04-2020 [place] 325 mg-5 mg oral tablet 1 tab(s), [...] MERVIN ARVIZU, HECTOR Primary Care Physician - Estelle Eubanks MD Discharge Vitals Temperature (Oral) 36.6 ?C Heart [...] you for choosing us for your care. [facility] Patient Letter FTon 2022 Patient Letter [facility] [address], [place] [address] August 02, 2023 DESTINI STILL [address] [place] [address] : 1990 Please excuse DESTINI STILL from school . Date and/or Time of Absence: From:08/02/23 May return to school on: 08/06/23 Restrictions: None Comments: Please excuse due to an acute illness. Provider Signature: Hector Jeffries PA-C [address] [place] [address] [facility] Provider Letteron 02-18-2023 Provider Letter [address] [facility] [address] P: [phone] F: [phone] [facility] [place] Location, Re: Destini Still 1990 Date of Visit with our office: 2023 Dear [facility] [place] Location, Please send recent office notes and diagnostic results on this patient. Thank you! Please feel free to contact me with any questions or concerns. Thank you! Ashwini Fournier RN [facility] Neurosurgery Office/Clinic N oteon 2023 Neurosurgery Office/Clinic [...] significant degenerative changes Left lower extremity EMG [place] 12/14/2022: Question of mild left S1 radiculopathy [...] a course of physical therapy performed through [facility] 08/04/2022 through 10/05/2022 without benefit. She has also had medication management including baclofen, meloxicam, and gabapentin. Patient reports she is established with pain management through [facility], but has yet to proceed with injections [...] Degenerative di (more content not included)... Normal [facility] Provider Letteron 2023 Provider Letter Mireille Varela, [...] Sincerely, Dorothy Thomason PA-C [facility] [place] [id number] The following document(s) were included in the letter: 2023 10:34:31 EDT - (2023) Neurosurgery Office Visit Note Normal [facility] MRI HIP LT WO CONon 12-22-19 MRI [...] MICHELLE SHEPPARD Date: 2022-12-21 17:09 Normal [facility] Neurosurgery Office/Clinic N oteon 12-07-2022 Neurosurgery Office/Clinic [...] a course of physical therapy performed through [facility] 08/04/2022 through 10/05/2022 without benefit. She has also had medication management including baclofen, meloxicam, and gabapentin. Patient reports she is established with pain management through [facility], but has yet to proceed with injections. PAST MEDICAL HISTORY: Nicotine abuse PAST SURGICAL HISTORY: Cholecystectomy ALLERGIES: No known drug allergies MEDICATIONS: See medication list SOCIAL HISTORY: Patient is . She has 2 children. She lives independently in [place]. Patient reports nicotine use of e-cigarettes daily. She states no alcohol or recreational drugs. 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 She states no [place] of Workmen's Compensation or third-republican insurance claims based on today's office visit. [...] refill, no (more content not included)... Normal [facility] Provider Letteron 12-07-2022 Provider Letter Mireille Varela, BAY-COFFEE ROASTER HELPER [address] [place] [address] Re: Destini Still Date of Visit: 12/07/2022 Dear Mireille Aichholz, Thank you for allowing me to contribute to the care of your patient, Destini Still. Attached is my office note and you will find my assessment and recommendations from our encounter today. Please do not hesitate to contact me with any questions or concerns. Sincerely, Dorothy Thomason PA-C [facility] [address] [address] The following document(s) were included in the letter: December 07, 2022 12:52:02 EDT - (12/07/2022) Neurosurgery Office Visit Note Normal [facility] MRI LSPINE WO CONon 10-21-19 MRI LSPINE [...] by: MITCH MCDUFFIE Date: 2022-10-20 11:09 Normal [facility] XR LSPINE 2_3 VIEWSon 2022 XR LSPINE [...] MICHELLE SHEPPARD Date: 2022-09-09 15:59 Normal [facility] Coding Summary.on 09-04-2022 Coding Summary. [id number] Gh 0bWw+PGhlYWQ+EQ1HEQZmT 20lfHShmT4BJ5eIXU2JSVZ LOZDLGO8FYK8sqZZ2IBjqF 2VybiAv QnjxrRMnPC21BEh2CLN4fH igXUsdyY4wgEWcM7l7VcHi IH07sP45XFikSVSdMwT5Kb ZpbjsgbWFy O5rtBhDtbRPdLss+PHRhYm xlIHdpZHRoPScxMDAlJyBz mOxaWC6uZa1oEGIpMFQkpB xhcHNlOiBj z9vfJMZzPNyrMT6rnStwN8 JmiOV4DIPxn6q8Ok99qOI+ CORoHCS9qZwfZNcql066Bw Grn3ryKLH0 qJQlZKtvXQO4O84ws6D3XR HhLIPzAXJ0vLD5rQ6ybHwf zlemO9ByqIZdOrE6MTT1yU TvxN1gjOxm zinebA7uMxy+A77VKR2TVA GVVG8FPcn9B4IfUlwrkSS+ DD84UHBeNU77tTZboYEeg5 pgtMf9ZhTl UFLxFJO8zOqiOWaej2GuBH JeT12xnWSlv7Q4VQUjoPrd xSPiUiIgjOJ6vL1iFNtzph wyq0plgbyk Rcczw9voxv08uY64O26rKH olXTGpGQZ0CLKwQMWkdGti vz5umG7bTe8+ADhym0utu9 mtgQg4DrPh CDPshmCplAdvUUP7s9YzDk 20O6LdfBudx4YqSyo6ik25 mGEmn2Z3hDW1AHrdGHZfkN 0kAEmbRmV5 PFCcBqFduV76yVObWOmxGl 7ufIwiuNlyBE5kLKZbddfk OPFpqE7fUSVbcKUtwPoaRM 4wNTBpbjtm w405TdTxTMD2ZVKphSZeC8 HyzE3rOlKpHAWqGRSfB9Gn dDXkJAmiX911KBntEoK6RQ YrjiVwN4Qu OMMmdTfsUmO0n3F7Mm1Eg5 YdkprpBTJ3WWmfBRPjIsUd DuPeCoF0V1RvWlb6RNHvwN kbTS8jV3If VWHzyuvvvjhckOV5JDDoNI PmxH06dSMfTTksCy0rw5T0 p947LOFeIYAwsC93Kh8vyJ ogMTBwdCBU dE8tyzyra4nkgmnnNhFdRW KbGAo4GMf2VNUydFoxQvEr MSJ8TuE1IKF4kVPtsX4drP ebxbzeuQ5d Oyc+A20ooR7uJUA7JSE6nk unXNWcgwFsMC43SE79H5Cq PjwvdGFibGU+PGRpdiBzdH vjDV0pIqGb h8nsl3MxHHswW8OqYCOfYG ihPux6RFEfYCY8gKY7iX7s SGJdZYdcl6X3sOJ6N3Sprk Wkva5uu8vg TOXbAMrrQ78qfBEho4F3RL EvbAF5QVVulLuqWkIkrJ74 Oyc+YLBspYkgg2KmQmsfd5 fte6wifRe7 KxQdSCOpedMfqDpmBJN3w1 YuLa51T43oCOueWQBiZUZh WUUrWHCruKaapz6pxU4uCy 8+PGNvbCB3 qOD8rN6cDIWsGzX3TWijD1 29ZoXifLRtBnmmf4irn0fq wEh6VaLgUTBymkZseYbyBZ L1z3WeYn64 D80wVBvrVFNxUANbDGToNJ EleMtnut8bnP0sCp1+PC9j k8tjjp40eS65xXO+PHRkIH E9zEnoNDbb RQEneB0fUYopXgC1CJTjQf WmlU19bFXwLOdmVb8aeLaw lIwdBB6yNRHxfuqbm878Fx Ybx2xoLUWy lQRhSKwaATY7H86zw3B0GE UbRYQxXPJ3eHZ1tQ2ljAte bjogbGVmdDsgdmVydGljYW vaLIyzD927 IHRvcDsnPlBhdGllbnQgTm IgMVg8I3JrOwy5KLLpyVcv UB3rpWOlTQkgGp1bfKlxqY mwDU5wMHRu kwmfh593TvQnc4rtNUJgyR OdNBzaCRT4O42xx6R9PFSl XBYuLHT1fDK1iX1idTzzqk ogbGVmdDsg wxHicHojMVakUGttI031HB RvcDsnPkJpcnRoIERhdGU6 FG77ZI32aIEru2P3jXT6D7 BhZGRpbmct kejntTK4PTFiJPKwoD64Qs 5moDhcCm5nFYLcDCF6CFBm oYGlM5NyeD8yVwBtWFOsYR EgQ4EwaBPu KEokP251UWraLoL7ISCfsr WvM6EgXKFmkMwxEdW1r1Y9 Jr2HW1E8XI43FA46hTZuz1 Y5aBI2U5Cs QAYoijfzveeypVW4XEIwHF UknB40Yb2ruGbkCq0gVWRj GQK9UBLfoOEuB3OlyB7dRr AjMDAwMDAw T6RpeEFsVVhbB036OZabHm K7YDZbehOrQ9RyJSRcnRqz UkG7a2U4Bk8CVPj1OB86XY 59aOVar1P7 vTH0C4NeJCQnqhmuciuzqQ H5IBPcPTYdiV64Rx2jbGtx Ht5oXNOiUMI3JXGxjBVsH3 GtwZ4tSfUz OVGfIWIiQ9FlzTNeRLffR1 12TIkeLdI5XCSgegUcA3Ly ETDgjQtjVrP1b4B4Fp6XWU RiWN64LDY0 eEX7DL26NT36T4QkTymuxA FibGU+PHRhYmxlIHdpZHRo RKymJRJuQzDorFgdYR3mVi 9yZGVyLWNv rLibuOYsZsOgl3gmMSUvXV owPF0pfDdkZ3PcdVM9GRRi u8v3Ct37J77gG5IgdEV+PG ZivKW5xAT3 sC9zDqDvXsI8ZTcdX071Jh FuhEFkNgoid3nbn4dwfUw9 GcD7DXRqwoGsqQejNYW9m1 ByYr06Z75g IHdpZHRoPSIxNSUiIHZhbG ptmq1vwR9dXc3+PGNvbCB3 aYK1dC2iXnNlAaH2PTdkE9 49InRvcCIv Onume1gtk0vjqRb7UaLpND IpccNusSyiGUN6v4CdEg22 M6LsmSodd1RxLmx4kq10xP Iou8Z0yRB6 M8KkNHOiupnucJDgnVbvKU 4nNPGvwjjeEMFhzQ7dUMHt F0q0XsLzVwG3JTmoF8Cgwh T3ILCudQVf EBbdBMW9Q93jy5T2AJNqTB JjTPS6mJZ8gQ5crMkeexyv bGVmdDsgdmVydGljYWwtYW ecY115ZCMj fQozHZTgoE2zLGVxnYJnlX uaID9dWQZqaxzoTkaTCeKD RSwgQlJJVFRBTlkgTDwvdG Q+PHRkIHN0 sIbhUAkrRVZziD6cTQObJ0 l0GhGrJkH2XVznN9PhFZKd snbqYj32eY3bMgUpIhS6RC cvR8VcnfD0 XINyaXPgNYfoXOC7T05dy8 S6UUFhDZVvLOZ7cJX7rQ4i bGlnbjogbGVmdDsgdmVydG ljYWwtYWxp P650KDWngLvaYbJ5DwVcWv R0FCv2D3FpWva1LKMbeCqh QS5uaCUhLUgnJn7esPjqbQ xgYF2wONTz frcoIEHwzU3kTNZkoGIozR psSY3eEBXrxwusf515HoRe VQK5MUNwpZJuL5DefS8fAw AjMDAwMDAw G0FslFZvBLsyN177AZipAi U1KMStwcXhA5MpTBEauXsu RiI9w7G0Xj9fSnASTNHwpo wvdGQ+PHRk PIR0hXfeCAzpWRSetP3kAD ZrY5r1UxCtKiY4AQxiB8Zl IQFfqrkvWj83uK7qVkEtXy E9XDilG1Gy bjL5GXWpaSBpMDxrWDB9U9 5nw9O2HTFvLDQmFIR9gIL0 bB3mgOijqqtocRSwqHmers VydGljYWwt BIacB427DIAewOkdKfBxcU FsZTwvdGQ+RWLeDQJ0rPrd NUcpQAIjoE6qLMBjR4r2Uv HwAaJ3FGkx W8XoQQOwwmudKb29tL5bJz MtBvM5JQvlA0BqwnD5UPOj kXXbJItcTFB6Z23ka7N5GN MwMDAwMDA7 tTQ8tF1rpNmwzsfctEVqsS huypCilHftLAmsUNwnF459 VQHrqXcbTzRpBSUeKK1oeB wvdGQ+PC90 ob02S8XpTmxcRnj9ETAiLP X1eZU2aW8qHSEcGDuhq7Q1 aVD6S1SguhHbbc6ni0xcWS CjCZpfQ69z ySWba9N3TFRadEW8JCNjcE tzZkVvvJ00Ocw+PGNvbGdy b2NlRhjjm2gxz9mybJm9Fo MwJSIgdmFs wYfdTHV1x8JfLv96T85gAL dpZHRoPSIzMCUiIHZhbGln so0tnK3nTn5+IAKnlNK5aP K6xN6yDxSc HrK5LNdoZ450WpLxxTAeGp zyj9zwz4hnnCx7QeBoQBIo haVpxTvxAVA6j1ZhFi73F3 RwwCpbl7Df Zmi6bn24iEEdl9Q6sHB2Y1 OtSOOnthliyRAaaXunCD4y EFUhjapaLZFadE3eHVCeA4 n6FpCiJiE2 UJapF8ZlqrJ4NRFveUHyHA TjzVWJsM4skzuih4bzgbzj TpXvNCPuEWf9HWt3BTXceI duOiBsZWZ0 PlC5CFO1uRZewH5eyIikeu uciD4bSsz+EPz7c4ectVRd EI8ddTH1TX30GC10nBOgh0 C7oWF8M7Xe PECihnudwbztbDF5BFTkNM FfxF00Yg7fyDqjMj2mNRFp KEN3UGLesOYnY8IddL2fMv AjMDAwMDAw R1NnnMPcGCxoG890KMltBh L0EOChcyGnN0VrIAIswJhk OsO9v1A9Uc2IBK97TN88MI 57mDFqm0Z5 lRQ2W3MhZDUasoyixcsdiY P5VEJdXSGybC34Vy6vmRtb Xu6xQIChSPD5PHQvcPSjU3 UhfX6yUfKv DMZuRSDoT2OzpYPfUQirF7 56OExdYhB3GRKkavEdW0Yc KKEcmTcbYoM8n4W7Ce5WOw 87ZI73AC26 bDYgu7E2gHU6R6OgGBKkhm ujscayvCN0VAJtCSXsuM33 Ar9ilUgxDz5dHKYzGOV7EA TxuGHlP4Di nE8iVuYxSUBkVUUvL8MmrG YsNOftW580GVbaZmZ9JJBj qtOaO2OfGKUfhHetEtH4w9 K5Mn8XSMrs fvo3Y7OpVzcwyGZ+PC90YW BwNY03yZXyaFDkz7myeBz5 XzKpUWCfJYL3pBrlNWbja2 TpMBVjV57t bGFw (more content not included)... Normal [facility] Discharge Instructionson Discharge Instructions [id number] 0CD:127 Normal [facility] XR Hip 2-3 Views Left + Pelv [...] Signed by: Dewey Allred M.D. Transcribed by: LINDA Technologist: DARIUS Normal [facility] Consent for Treatmenton 08-16 Consent for Treatment [id number] 0CD:127 Normal [facility] ED Clinical Summaryon 2022 ED Clinical Summary [place] [id number] ED Clinical Summary Person Information Name: DESTINI STILL Dona/[facility] Age: 32 Years : 1990 Sex: Female Language: Marshallese PCP: Estelle Eubanks MD Marital Status: Phone: [phone] Visit Id: Visit Reason: Leg pain-swelling; Hip [...] 09/03/2022 19:50:11 09/03/2022 19:50:11 09/03/2022 19:50:11 ADDRESS: [address] [place] [id number] [facility] DOC NOTES: MEDICAL INFORMATION: Prescriptions Given: New [...] with No Changes Other Medications acetaminophen-hydrocod one ([place] 325 mg-5 mg oral tablet) 1 Tablets By Mouth every 4 hours as needed for pain. Refills: 0. PATIENT EDUCATION INFORMATION: Instructions: Hip Sprain Follow up: With: Address: When: Malik Mauro [address] [place], [place] [id number] Business (1) In 7 days 09/10/2022, only if needed With: Address: When: Estelle Eubanks [address] [place] [address] [employer] (1) In 3 days DIAGNOSIS: 1:Sprain of left hip Normal [facility] ED Note-Physicianon 09-03-19 23 ED Note-Physician Basic Information Time Seen: Dariana [...] days 09/10/2022 EST, only if needed [address] [place] [address] [employer] (1) Additional Instructions: Estelle Eubanks In [address] [place] [id number] [employer] (1) Additional Instructions: Patient Education Hip Sprain Attestation Patient was treated and evaluated by the Physician Shuttle Inspector. The attending physician was in the Emergency [...] Tab, 500 mg= 1 tab(s), Oral, BID [place] 325 mg-5 mg oral tablet, 1 tab(s), Oral, q4hr, PRN Robaxin-750 oral tablet, 750 mg= 1 tab(s), Oral, TID, PRN Allergies Oranges (swelling of tongue and mouth) Social History Alcohol Substance Abuse Tobacco 10 or more cigarettes (1/2 pack or more)/day in last 30 days Tobacco Use (more content not included)... Normal [facility] Comment on above: Result Comment: Elec tronically [...] health care provider. General instructions ? Take luxc-ksy-dtlwmwq and prescription medicines only as told by your health care provider. ? Ask your health care provider if the medicine prescribed to you: ? Requires you to avoid driving or using heavy machinery. ? Can cause constipation. You may need to take actions to prevent or treat constipation, such as: ? Drink enough fluid to keep your urine pale yellow. ? Take lbhk-kpm-vtmehwf or prescription medicines. ? Eat foods that [...] Other chavo (more content not included)... Normal [facility] ED Patient Summaryon 023 ED Patient Summary [facility] [address] [place], [place] [address] Patient Discharge Instructions Person Information Name: DESTINI STILL Age: 32 Years Arrival Date: 09/03/2022 17:35:53 Discharge Diagnosis: 1:Sprain of left hip Primary Care Physician: Raimundo ZIEGLER, Estelle Burnett Provider Information Primary Provider: Danuta Castro, Trenton Villareal Advanced Wireless Architect:Dariana Zelaya PA-C The exam and treatment you received in the Emergency Department were for an urgent problem and are not intended as complete care. It is important that you follow up with a doctor, nurse practitioner, or physician?s assistant store leader for ongoing care. If your symptoms become [...] Instructions: With: Address: When: Malik [address] [place] [phone] [employer] (1) In 7 days 09/10/2022, only if needed With: Address: When: Estelle Eubanks [address] [place] [phone] [employer] (1) In 3 days In the event that this physician does not participate in your insurance network, please consult with your insurance company to find a nearby participating provider. Patient Education Materials: Hip Sprain A MESSAGE TO ALL PATIENTS REGARDING OPIOIDS PRESCRIPTION OPIOIDS: WHAT YOU NEED TO KNOW Prescription opioids can be used to help relieve yflwuudk-yf-nroidu pain and are often prescribed following a [...] addiction, tell (more content not included)... Normal [facility] MICRO OTHER TESTSOrdered By: Yohana Foster on 03-18-2022 Rapid COV Int NEG Ctl Pass (03/18/22 7:41 AM) Normal [facility] Man Sero Rapid COV Int POS Ctl Pass (03/18/22 7:41 AM) Normal [facility] Man Sero S. pyogenes Ag IA.rapid Ql (Throat) Negative (03/18/22 7:41 AM) Normal Negative [facility] Man Sero SARS-CoV+SARS-CoV-2 (COVID-19) Ag IA.rapid Ql (Resp) Not Detected (03/18/22 7:41 AM) Normal Not Detected [facility] Man Sero Vital Signs Date Time Vital Sign Value Performing Clinician Facility 08-02-2023 13:55-0500 [facility] 08-02-2023 13:55-0500 Body temperature 97.88 [degF] [facility] 08-02-2023 13:55-0500 Diastolic blood pressure 76 mm[Hg] [facility] 08-02-2023 13:55-0500 Heart rate 88 /min [facility] 08-02-2023 13:55-0500 SaO2% (BldA) [Mass fraction] 97 % [facility] 08-02-2023 13:55-0500 Systolic blood pressure 118 mm[Hg] [place] [employer] [facility] 09-03-2022 19:32-0500 Diastolic blood pressure 71 mm[Hg] [facility] 09-03-2022 19:32-0500 Heart rate 91 /min [facility] 09-03-2022 19:32-0500 Mean blood pressure 82 mm[Hg] [facility] 09-03-2022 19:32-0500 Respiratory rate 18 /min [facility] 09-03-2022 19:32-0500 SaO2% (BldA) [Mass fraction] 99 % [facility] 09-03-2022 19:32-0500 Systolic blood pressure 105 mm[Hg] [facility] 09-03-2022 17:39-0500 Body temperature 96.98 [degF] [facility] 09-03-2022 17:39-0500 Diastolic blood pressure 8 mm[Hg] [facility] 09-03-2022 17:39-0500 Heart rate 106 /min [facility] 09-03-2022 17:39-0500 Respiratory rate 18 /min [facility] 09-03-2022 17:39-0500 SaO2% (BldA) [Mass fraction] 100 % [facility] 09-03-2022 17:39-0500 Systolic blood pressure 120 mm[Hg] [facility] 03-18-2022 08:30-0400 Diastolic blood pressure 72 mm[Hg] Brian Blanchard [facility] 03-18-2022 08:30-0400 Heart rate 86 /min Brian Blanchard [facility] 03-18-2022 08:30-0400 Mean blood pressure 87 mm[Hg] Brian Blanchard [facility] 03-18-2022 08:30-0400 Respiratory rate 16 /min Brian Blanchard [facility] 03-18-2022 08:30-0400 SaO2% (BldA) [Mass fraction] 98 % Brian Blanchard [facility] 03-18-2022 08:30-0400 Systolic blood pressure 117 mm[Hg] Brianakira Blanchard [facility] 03-18-2022 07:18-0400 Body temperature 98.24 [degF] Brian Santo [facility] 03-18-2022 07:18-0400 Diastolic blood pressure 78 mm[Hg] Brian Blanchard [facility] 03-18-2022 07:18-0400 Heart rate 93 /min Brianakira Blanchard [facility] 03-18-2022 07:18-0400 Respiratory rate 16 /min Brianakira Blanchard [facility] 03-18-2022 07:18-0400 SaO2% (BldA) [Mass fraction] 98 % Brianakira Blanchard [facility] 03-18-2022 07:18-0400 Systolic blood pressure 116 mm[Hg] Brianakira Blanchard [facility] Encounters Encounter Date Encounter Type Care Provider Facility Start: 11-01-2023 End: 11-01-2023 ambulatory MIREILLE AICHHOLZ Not Available Start: 11-01-2023 End: 11-01-2023 ambulatory MIREILLE AICHHOLZ Not Available Start: 08-02-2023 End: 08-03-2023 ambulatory HECTOR JEFFRIES Facility: [place] Start: 08-02-2023 End: 08-02-2023 Patient encounter procedure HECTOR JEFFRIES [facility] Start: 07-26-2023 End: 07-26-2023 ambulatory MIREILLE AICHHOLZ Not Available Start: 07-26-2023 End: 07-26-2023 ambulatory MIREILLE AGUILAZ Not Available Start: 04-16-2023 ambulatory Mireille Zoe eaton 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 Facility:[facility] Start: 01-05-2023 ambulatory NARENDRANATH LAKSHMIPATHY . Facility:[facility] Start: 12-22-2022 End: 12-23-2022 ambulatory NARENDRANATH LAKSHMIPATHY . Facility:[facility] Start: 12-21-2022 End: 12-22-2022 ambulatory NARENDRANATH LAKSHMIPATHY . Facility:[facility] Start: 12-15-2022 ambulatory NARENDRANATH LAKSHMIPATHY . Facility:[facility] Start: 12-07-2022 End: 12-08-2022 ambulatory Dorothy CHAMPION-C Facility:[facility] Start: 11-17-2022 End: 11-18-2022 ambulatory NARENDRANATH LAKSHMIPATHY . 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 MIREILLE AUSTEN Facility:[facility] Start: 09-16-2022 End: 10-17-2022 ambulatory COFFEE ROASTER HELPER MIREILLE AUSTEN Facility:[facility] Start: 09-09-2022 End: 09-10-2022 ambulatory CO[employer]EE RO[employer]ER HELPER MIREILLE AUSTEN Facility: Start: 09-03-2022 End: 09-03-2022 Emergency department patient visit [place] Facility:[facility] Start: 09-03-2022 End: 09-03-2022 Emergency department patient visit [place] [facility] Start: 03-18-2022 End: 03-18-2022 Emergency department patient visit Brian Blanchard [facility] Immunizations Immunization Date Immunization Notes Care Provider [address]12-2020 influenza virus vaccine, unspecified formulation HECTOR JEFFRIES [facility] 06-01-2019 influenza virus vaccine, unspecified formulation HECTOR MERVIN [facility] 06-25-2018 influenza virus vaccine, unspecified formulation [facility] [facility] 05-09-2015 influenza virus vaccine, unspecified formulation [place] [facility] 05-09-2015 tetanus toxoid, reduced diphtheria toxoid, and acellular pertussis vaccine, adsorbed [place] [facility] 08-14-2005 hepatitis B vaccine, pediatric or pediatric/adolescent dosage [employer] [place]FF[employer]ES [facility] Payers Date Payer Category Payer Unknown 1989 Unknown [id number] 2.16.84 [id number] 1989 Unknown [id number] 2.16.84 0.1.368285.3.579.2.593 1989 Unknown [id number] 2.16.84 0.1.403351.3.579.2.593 1989 Unknown [id number] 2.16.84 0.1.325227.3.579.2.593 1989 Unknown [id number] 2.16.84 0.1.790302.3.579.2.593 1989 Unknown [id number] 2.16.84 0.1.643053.3.579.2.593 1989 Unknown [id number] 2.16.84 0.1.456900.3.579.2.593 1989 Unknown [id number] 2.16.84 0.1.784213.3.579.2.593 1989 Unknown [id number] 2.16.84 0.1.906773.3.579.2.593 1989 Unknown [id number] 2.16. 840.1.915166.3.579.2.196 1989 Unknown [id number] 2.16. 840.1.518565.3.579.2.196 1989 Unknown [id number] 2.16. 840.1.163444.3.579.2.196 1989 Unknown [id number] 2.16. 840.1.108657.3.579.2.196 1989 Unknown [id number] 2.16.8 40.1.206417.3.579.2.727 1989 Unknown [id number] 2.16.8 40.1.994682.3.579.2.727 1989 Unknown [id number] 2.16.84 0.1.721156.3.579.2.1259 1989 Unknown [id number] 2.16.840 .1.660534.3.579.2.1259 1959 Unknown [id number] Social History Date Type Detail Facility Start: 02-03-2021 Tobacco smoking status Heavy t obacco smoker (finding) [facility] Sex Assigned At Female [facility] Start: 08-02-2023 Tobacco smoking status Ex-smoker (fi nding) [facility] Functional Status Date Assessment Result Facility 08-02-2023 Functional Status N/A [facility] 09-03-2022 Functional Status N/A [facility] 03-18-2022 Functional Status No [facility] Clinical Notes 03-18-2022 to 12-22-2022 Note [...] our patients to inform us about any efdx-brw-muicero medications or herbal remedies/nutritional supplements/alternative remedies. 2. [...] options with their primary care provider. [facility] 12-09-2022 Note Procedure: Neutral, flexion, and extension lateral views of the lumbar spine. Clinical information: 32-year-old female with history of bulging disc. Chronic back pain. Comparison: Lumbar spine MRI from the [facility] 10/19/2022. Findings: Bones: Mild L2-3, L3-4, and L4-5 retrolisthesis on the neutral view that does not substantially changed on flexion and extension views. Intervertebral discs: Intact height. Facet joints: Grossly intact. Soft tissues: Unremarkable. IMPRESSION: No evidence for lumbar spine instability. Final Dictated by: Ander Caballero MD Dictated DT/TM: 12/09/2022 8:32 am Signed by: Ander Caballero MD Signed (Electronic Signature): 12/09/2022 8:33 am (If Report Is Signed, Electronically Signed in Other Vendor System) [facility] 11-17-2022 Note CONSULTATION CONSULTATION DATE: 11/17/2022 TO: [...] our patients to inform us about any olxj-lad-ldtshao medications or herbal remedies/nutritional supplements/alternative remedies. 2. [...] options with their primary care provider. [facility] 09-09-2022 Note PROCEDURE: XR HIP LT 2 3V WO PELVIS HISTORY: Lumbar radiculopathy ; acute low back and left groin pain; no known injury COMPARISON: None. FINDINGS: BONES:No fracture, acute abnormality, or significant arthropathy. SOFT TISSUES:No visible soft tissue swelling. EFFUSION:None visible. OTHER: Negative. IMPRESSION: 1. No acute bone abnormality or significant degenerative changes. Electronically authenticated by: MICHELLE SHEPPARD Date: 2022-09-09 16:00 [facility] 09-03-2022 Hospital Discharg e instructions Patient Education [...] your health care provider. General instructions Take iwlk-meg-zpjbzxe and prescription medicines only as told by your health care provider. Ask your health care provider if the medicine prescribed to you: ?Requires you to avoid driving or using heavy machinery. ?Can cause constipation. You may need to take actions to prevent or treat constipation, such as: ?Drink enough fluid to keep your urine pale yellow. ?Take hebk-qjj-snjvhlz or prescription medicines. ?Eat foods that are [...] 03/23/2019 Document Revised: 11/23/2019 Document Reviewed: 03/23/2019 [employer] Patient Education 2020 [employer] Follow Up Care 09/03/2022 17:37:19 With:Malik Mauro Address: [address] [place], [place] [id number]- Business (1) When:09/10/2022 19:37:09 only if needed With:Estelle Eubanks Address: [address] [place] [address]- Business (1) When:Within 3 Day(s) [facility] 09-03-2022 Evaluation + Plan note Extrac nerissa from: Title:ED Note Author:Dariana Zelaya PA-C Rosalino e:09/03/22 1. Sprain of left hip [...] voices understanding and is agreeable to plan. [facility]08-03-2022 Evaluation + Plan noteExtracted from: Title:ED Note Author:Brian Blanchard DO Date: Acute pharyngitis (J02.9: Ac [place] pharyngitis, unspecified) Orders: dexamethasone, 10 mg = 2.5 mL, Injection, Oral, Once, Stop date 03/18/22 7:29:00 EDT, STAT, Start date 03/18/22 7:29:00 EDT, 03/18/22 7:29:00 EDT ibuprofen, 600 mg = 1 tab(s), Tab, Oral, Once, Stop date 03/18/22 7:29:00 EDT, STAT, Start date 03/18/22 7:29:00 EDT, 03/18/22 7:29:00 EDT Group A Strep by PCR Rapid COVID Antigen ([facility]) Rapid Strep w/rfx [facility]08-03-2022 Hospital Discharge instructions Patient Education 03/18/2022 [...] medicines. Follow these instructions at home: Take mliy-hgv-fautkez and prescription medicines only as told by [...] 08/02/2006 Document Revised: 07/15/2018 Document Reviewed: 09/07/2017 [employer] Patient Education 2020 [employer]. Follow Up Care 03/18/2022 07:16:27 With:Alicia SEARS Address: [address] [place], [place] [address] [place] [address]- Business (1) When:03/21/2022 08:13:18 Comments:Call the office [...] you develop any new or worsening symptoms. [facility] Narrative No data available for this section [facility] No data available for this section [facility] Progress note No data available for this section [facility] Summary Purpose Family History No Family History Records FoundNo Family History Records Found No data available for this section No Family History Records FoundNo Family History Records FoundNo Family History Records Found Advance Directives No Advanced Directives Records FoundNo Advanced Directives Records FoundNo Advanced Directives Records FoundNo Advanced Directives Records FoundNo Advanced Directives Records Found Additional Source Comments Care Team (unrecognized sect ion and content) Personnel Name: Alicia SEARS MD Address: [address] [facility] [facility] [address] [place] [address]- Personnel Name: Estelle Eubanks MD Address: Address: [address] [place] [address] Personnel Name: Estelle Eubanks MD Address: Address: [address] [place] [address] INFORMATION SOURCE (unrecogn ized section and content) DATE CREATED AUTHOR 12/28/2022 [facility] DATE CREATED AUTHOR AUTHOR'S ORGANIZ ATION 04/07/2023 [facility] DATE CREATED AUTHOR AUTHOR'S ORGANIZ ATION 08/03/2023 [facility] DATE CREATED AUTHOR AUTHOR'S ORGANIZ ATION 11/02/2023 [facility] EPIC DATE CREATED AUTHOR AUTHOR'S ORGANIZ ATION 01/30/2024 [facility] FOR RECORDS PERTAINING TO PATIENTS WHO ARE [...] BE BASED ON THE PRIMARY CLINICAL RECORDS. [facility]. provides no warranty or guarantee of the accuracy or completeness of information in this document.
[2024-04-19] MEDS: BUPIVACAINE HCL 0.5% PF 50 MG/10 ML VIAL 4 ML INJ (09:05)
[2024-04-19] MEDS: METHYLPREDNISOLONE ACETATE 80 MG/ML VIAL INJ (09:05)
[2024-04-19] MEDS: LIDOCAINE HCL 10 ML, SODIUM BICARBONATE 1 MEQ INJ (09:05)
--- NOTE | 2024-04-19 09:48 | SUR.PREOP ---
04/11/24 Pt instructed on procedure, date, time, and prep.
== END 2024-04-19 09:05 | disposition home or self-care (01) ==
LOC: FL 08:16
PROVIDERS: Radiology Diagnostic Radiology; PCP Nurse Practitioner; Visit Provider Orthopaedic Surgery
DX: M70.62 Trochanteric bursitis, left hip (principal)
CPT/HCPCS: 20610; 77002; J0665; J1010; Q9966; Q9967

== ENCOUNTER 2025-01-30 13:06 | Outpatient (OUT) | payer OTHER, SELFPAY ==
--- OUTSIDE RECORDS SUMMARY | 2024-03-31 05:30 | XMS_ITS ---
Author Organization [facility] Address [address] [place] [address] Care Team Providers Care Rn Trauma Name Role Phone Marilyn Lisa Unavailable [phone] REASON FOR VISIT left hip MRI arthrogram review Encounters Encounter Location Date Provider Diagnosis [facility] [address] [place] [address] [place] [address] 03/31/2024 Marilyn Lisa Plan Of Treatment No Information Progress Notes * ALEXANDRE LIZ LDOB:1989 (34 yo F)Acc No.[id number]:03/31/2024 Patient: ALEXANDRE STONE Provider: Jerry David MD, PhD :1990 A ge:34 Y S ex:Female Date:03/31/2024 Address:[address] [place], [place] [id number] Subjective: * Chief Complaints: * 1 . left hip MRI arthrogram review. * Medical History: Objective: * Vitals: Assessment: Plan: * Treatment: Forms: * Images: * Electronic signature of John Lisa MD, PHD on 01/30/2025 at 01:09 PM EDT Sign off status: Pending * Provider: Jerry David MD, PhD Date: 03/31/2024 Generated for Jason steven/Ilda/eTransmitting on: 0 01/30/2025 01:09 PM EDT
--- OUTSIDE RECORDS SUMMARY | 2024-11-28 06:15 | XMS_ITS ---
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 Name Role Phone Shanda Gao Primary Care Provider Lenora Martinez Unavailable [phone] REASON FOR VISIT CHIP TOOTH Encounters Encounter Location Date Provider Diagnosis [facility] [place] [address] [place] [address] 11/28/2024 Lenora Martinez Plan Of Treatment Next Appt Details Provider Name:Lenora ochoa, 03/29/2025 08:30:00 AM, [address] [place], [address], Provider Name:Lenora ochoa, 04/02/2025 01:00:00 PM, [address], [place], [address], Provider Name:Gissel Gamboa, 06/19/2025 08:45:00 AM, [address], [place], [address], Progress Notes * MARIBEL LIZOB:[birth year] (34 yo F)Acc No.[id number]:11/28/2024 Patient: Dionna ALEXANDRE MILTON Provider: Lima Martinez DDS :1990 A ge:34 Y S ex:Female Date:11/28/2024 Address:[address] [place] [address], [place], [place] Pcp:Shanda Aguilar Subjective: * Chief Complaints: * 1 . CHIP TOOTH. * Medical History: Objective: * Vitals: Assessment: Plan: * Treatment: * Images: * Electronic signature of Kody Martinez DDS on 01/30/2025 at 01:09 PM EDT Sign off status: Pending * Provider: Lima Martinez DDS Date: 0 11/28/2024 Generated for Jason steven/Ilda/Connie on: 01/30/2025 01:09 PM EDT
--- OUTSIDE RECORDS SUMMARY | 2025-01-17 09:40 | XMS_ITS | Encounter Summary ---
Author Organization [facility] Address [address] [place] [address] Care Team Providers Care Car Shifter Name Role Phone Mireille Varela PACKING TRACTOR MACHINE OPERATOR Unavailable [phone] Sergio Kirkland MD Primary Care Provider [phone] Mireille Varela PACKING TRACTOR MACHINE OPERATOR Unavailable [phone] Reason for Visit * Reason Comments Annual Exam Encounter Details Date Type Department Care Team (Late st Contact Info) Description 01/17/2025 9:40 AM EDT Office Visit [facility] [address] [place] [address] Mireille Varela PACKING TRACTOR MACHINE OPERATOR [address] [place] [phone] Encounter for adult wellness visit (Primary Dx); Current smoker; Left hip pain; Chronic pain of left knee Social History Tobacco Use Types Packs/Day Years Used Date Smoking Tobacco: Every Day Comments:11-20 cigarettes/da y Alcohol Use Standard Drinks/Week Comments Yes 1 (1 standard drink = 0.6 oz pur e alcohol) caffine: energy drink daily B1300 Health Literacy Answer Date Recor ded How often do you need to hav e someone help you when you read instructions, pamphlets, or other written material from your doctor or pharmacy? Never 04/16/2024 Social Connection and Isolat ion Panel [NHANES] Answer Date Recorded In a typical week, how many times do you talk on the phone with family, friends, or neighbors? More than three times a week 04/16/2024 How often do you get togethe r with friends or relatives? Twice a week 04/16/2024 How often do you attend chur ch or baptism services? 1 to 4 times per year 04/16/2024 Do you belong to any clubs o r organizations such as alevism groups, unions, fraternal or athletic groups, or school groups? No 04/16/2024 How often do you attend meet ings of the clubs or organizations you belong to? Never 04/16/2024 Are you , , di vorced, , never , or living with a partner? 04/16/2024 AUDIT-C Answer Date Recorded Q1: How often do you have a drink containing alcohol? Never 04/16/2024 Q2: How many drinks containi ng alcohol do you have on a typical day when you are drinking? Patient does not drink Q3: How often do you have si x or more drinks on one occasion? Never 04/16/2024 Overall Financial Resource Strain (CARDIA) Answe r Date Recorded How hard is it for you to pa y for the very basics like food, housing, medical care, and heating? Not hard at all 04/16/2024 PHQ-2 Answer Date Recorded Patient Health Questionnaire-2 Score 0 11/01/2023 [facility] - Occupational Stress Questionnaire Answer Date Recorded Do you feel stress - tense, restless, nervous, or anxious, or unable to sleep at night because your mind is troubled all the time - these days? Not at all 04/16/2024 Exercise Vital Sign Answer Date Recorde d On average, how many days pe r week do you engage in moderate to strenuous exercise (like a brisk walk)? 5 days 04/16/2024 On average, how many minutes do you engage in exercise at this level? 30 min 04/16/2024 Hunger Vital Sign Answer Date Recorded Within the past 12 months, y ou worried that your food would run out before you got the money to buy more. Never true 04/16/20 24 Within the past 12 months, t he food you bought just didn't last and you didn't have money to get more. Never true 04/16/2024 PRAPARE - Transportation Answer Date Re corded In the past 12 months, has l ack of transportation kept you from medical appointments or from getting medications? No 08/2023 In the past 12 months, has l ack of transportation kept you from meetings, work, or from getting things needed for daily living? No 04/16/2024 Housing Stability Vital Sign Answer Rosalino e Recorded In the last 12 months, was t here a time when you were not able to pay the mortgage or rent on time? No 04/16/2024 In the past 12 months, how m any times have you moved where you were living? 0 04/16/2024 At any time in the past 12 m [facility], were you homeless or living in a long-term (including now)? No 04/16/2024 Comments No Sex and Gender Information Value Date Recorded Sex Assigned at Female 01/28/2024 6:54 PM EDT Legal Sex Female 6:36 PM EDT Gender Identity Female 01/28/2024 6:54 PM EDT Sexual Orientation Not on file documented as of this encounter Last Filed Vital Signs Vital Sign Reading Time Taken Comments Blood Pressure 100/60 01/17/2025 9:38 AM EDT Pulse 70 01/17/2025 9:38 AM EDT Temperature 36.7 C (98 F) 01/17/2025 9:38 AM EDT Respiratory Rate 18 01/17/2025 9:38 AM EDT Oxygen Saturation 98% 01/17/2025 9:38 AM EDT Inhaled Oxygen Concentration - - Weight 63 kg (139 lb) 01/17/2025 9:38 AM EDT Height - - Body Mass Index 21.77 07/24/2024 1:04 PM EST documented in this encounter Patient Instructions * Patient Instructions* Mireille Varela NP - 01/17/2025 9:40 AM EDT Continue with ortho Will start with xr of left knee, may need MRI will await the xray results documented in this encounter Progress Notes * Mireille Varela NP - 01/17/2025 10:18 AM EDTAssociated Problem(s): Chronic pain of left knee Check plain film xray Consider MRI as well * GISELA WILLIAMSON - 01/17/2025 9:40 AM EDT Left knee- sharp pain pt would like to discuss if it is in correlation to her hip or if its from her past hx. Pain comes and goes. The pain is located in front of cap. She is unsure if it is pressurestemming from her hip. * Mireille Varela NP - 01/17/2025 9:40 AM EDT Images from the original note were not included. Destini Still is a 34 y.o. female presents with chief complaint of Annual Exam HPI: Diet:variety and balanced Activity: limited w hip pathology, does a lot of walking at home Mental Health Concerns:no Any hearing problems: no Any Vision problems: no Any Hospitalizations in the last year:no Specialist:ortho Concerns: Knee pain: going on several weeks, no recent trauma, sharp pain, can also lock up, sometimes feels unstable, pain whether walking standing sitting or lying in bed No swelling noted. Left knee, and hip pathology is also left side SUBJECTIVE: MEDICATIONS: Current Outpatient Medications Medication Instructions gabapentin (NEURONTIN) 400 mg, Oral, 2 times daily ALLERGIES: No Known Allergies REVIEW OF SYMPTOMS: Review of Systems Constitutional: Negative for appetite change, chills and fever. HENT: Negative for congestion, ear pain and sore throat. Eyes: Negative for pain, discharge, redness and visual disturbance. Respiratory: Negative for cough, shortness of breath and wheezing. Cardiovascular: Negative for chest pain, palpitations and leg swelling. Gastrointestinal: Negative for abdominal pain, blood in stool, constipation, diarrhea, nausea and vomiting. Genitourinary: Negative for difficulty urinating, dysuria and frequency. Musculoskeletal: Positive for arthralgias. Negative for back pain, joint swelling and myalgias. Skin: Negative for rash and wound. Neurological: Negative for dizziness, tremors, seizures, syncope and headaches. Psychiatric/Behavioral: Negative for behavioral problems, self-injury and suicidal ideas. The patient is not nervous/anxious. Hematological: Does not bruise/bleed easily. Endocrine: Negative for polydipsia, polyphagia and polyuria. Allergic/Immunologic: Negative for environmental allergies and food allergies. PAST MEDICAL HISTORY Past Medical History: Diagnosis Date Left hip pain Left lumbar radiculopathy Lumbar spondylosis 07/22/2023 Odynophagia Overweight (BMI 25.0-29.9) 07/26/2023 Past Surgical History: Procedure Laterality Date CHOLECYSTECTOMY FL GUIDED INJECTION HIP LEFT Left 04/19/2024 FL GUIDED INJECTION HIP LEFT GALLBLADDER VAGINAL DELIVERY family history includes Breast cancer in her father's sister; Diabetes in her maternal grandfather;Heart disease in her maternal grandmother. OBJECTIVE: Visit Vitals BP 100/60 (BP Location: Right arm, Patient Position: Sitting, BP Cuff Size: Adult long) Pulse 70 Temp 98 ??F (Temporal) Resp 18 Wt 139 lb SpO2 98% BMI 21.77 kg/m?? OB Status Having periods Smoking Status Every Day BSA 1.73 m?? Physical Exam Vitals and nursing note reviewed. Constitutional: General: She is not in acute distress. Appearance: Normal appearance. HENT: Head: Normocephalic and atraumatic. Right Ear: External ear normal. Left Ear: External ear normal. Nose: Nose normal. Mouth/Throat: Mouth: Mucous membranes are moist. Eyes: Extraocular Movements: Extraocular movements intact. Conjunctiva/sclera: Conjunctivae normal. Cardiovascular: Rate and Rhythm: Normal rate and regular rhythm. Pulses: Normal pulses. Heart sounds: Normal heart sounds. Pulmonary: Effort: Pulmonary effort is normal. Breath sounds: Normal breath sounds. No wheezing or rhonchi. Abdominal: General: Bowel sounds are normal. There is no distension. Palpations: Abdomen is soft. There is no mass. Tenderness: There is no abdominal tenderness. Musculoskeletal: Cervical back: Normal range of motion and neck supple. Right lower leg: No edema. Left lower leg: No edema. Comments: No left hip exam completed Left knee: no swelling /gross deformity Pain about the knee with flexion/extension Pain with mc kristin, no definite laxity noted Lymphadenopathy: Cervical: No cervical adenopathy. Skin: General: Skin is warm and dry. Capillary Refill: Capillary refill takes 2 to 3 seconds. Findings: No rash. Neurological: General: No focal deficit present. Mental Status: She is alert and oriented to person, place, and time. Psychiatric: Mood and Affect: Mood normal. Behavior: Behavior normal. Thought Content: Thought content normal. Judgment: Judgment normal. ASSESSMENT AND PLAN: No follow-ups on file. Problem List Items Addressed This Visit Current smoker Left hip pain Hx: john to BID, has had MRI lumbar, hip, as well with arthrogram hip, and injections.. referred Marianna Macdonald say mid December 2024 Possible scope pending vs hip replacement Encounter for adult wellness visit - Primary Reviewed Ht/Wt/BMI Recommend eye exam yearly Recommend dental exams twice a year Balance work/leisure activities Exercises is recommended most days of the week (appropriate as chronic conditions allow) Follow up yearly and prn Relevant Orders CBC and differential Comprehensive metabolic panel Lipid panel Urinalysis with reflex microscopic (clean catch) TSH Chronic pain of left knee Check plain film xray Consider MRI as well Relevant Orders XR knee 3 views left * Mireille Varela NP - 01/17/2025 6:21 AM EDTAssociated Problem(s): Encounter for adult wellness visit Reviewed Ht/Wt/BMI Recommend eye exam yearly Recommend dental exams twice a year Balance work/leisure activities Exercises is recommended most days of the week (appropriate as chronic conditions allow) Follow up yearly and prn * Mireille Varela NP - 01/17/2025 6:21 AM EDTAssociated Problem(s): Left hip pain Hx: john to BID, has had MRI lumbar, hip, as well with arthrogram hip, and injections.. referred Marianna Macdonald say mid December 2024 Possible scope pending vs hip replacement documented in this encounter Plan of Treatment Upcoming Encounters Date Type Department Care Team (Late st Contact Info) Description 07/19/2025 9:40 AM EST Office Visit [facility] [address] [place] [address] Mireille Varela NP [address] [place] [phone] Scheduled Orders Name Type Priority Associated Diagnoses Orde r Schedule CBC and differential Lab Routine Encounter for adult wellness visit Expected: 01/17/2025 (Approximate), Expires: 01/17/2026 Comprehensive metabolic panel Lab Routine Encounter for adult wellness visit Expected: 01/17/2025 (Approximate), Expires: 01/17/2026 Lipid panel Lab Routine Encounter for adult wellness visit Expected: 01/17/2025 (Approximate), Expires: 01/17/2026 Urinalysis with reflex microscopic (clean catch) Lab Routine Encounter for adult wellness visit Expected: 01/17/2025 (Approximate), Expires: 01/17/2026 TSH Lab Routine Encounter for adult wellness visit Expected: 01/17/2025 (Approximate), Expires: 01/17/2026 XR knee 3 views left Imaging Routine Chronic pain of left knee Expected: 01/17/2025, Expires: 01/17/2026 documented as of this encounter Visit Diagnoses Diagnosis Encounter for adult wellness visit- Primary Current smoker Left hip pain Pain in joint, pelvic region and thigh Chronic pain of left knee documented in this encounter Care Teams Car Shifter Relationship Specialty Start Date End Date Sergio Kirkland MD [address] [place] [phone] PCP - General Family Medicine 11/01/23 Mireille Varela NP [address] [place] [phone] Referring Physician Nurse Practitioner 03/03/23 Mireille Varela NP [address] [place] [address] Nurse Practitioner Family Medicine 11/01/23 documented as of this encounter
--- NOTE | 2025-01-30 | XR_ITS ---
The [address] [address] Patient Name: ALEXANDRE LIZ MRN: [id number] date: 1990 Sex: F Assigned Patient Location: LAB Current Patient Location: LAB Accession/Order Number: [id number] Exam Date: 01/30/2025 14:56 Report Date: 01/30/2025 14:56 At the request of: ARCHANA BOYCE NP Procedure: XR knee LT 3V LEFT KNEE - 3 views CLINICAL HISTORY: CHRONIC PAIN OF LEFT KNEE COMPARISON: None FINDINGS: No knee joint effusion or acute bony process. Joint spaces appear maintained. XR/XR knee LT 3V IMPRESSION: NO ACUTE BONY PROCESS. Impression dictated by: Joshua Wade Jr., D.O. 01/30/2025 2:56 PM Dictation Location: [place] [address] Electronically authenticated by: [id number] Y Date: 01/30/2025 14:56
--- OUTSIDE RECORDS SUMMARY | 2025-01-30 13:09 | XMS_ITS | Encounter Summary ---
Author Organization [facility] Address [address] [place] [address] Care Team Providers Care Operations Agent Name Role Phone Mireille Varela CLIN NURSE Unavailable [phone] Sergio Kirkland MD Primary Care Provider [phone] Mireille Varela CLIN NURSE Unavailable [phone] Encounter Details Date Type Department Care Team (Late st Contact Info) Description 02/28/2024 Clinisync Result Encounter [facility] External Department Unsolicited Provider, Generic External Data Social History Tobacco Use Types Packs/Day Years Used Date Smoking Tobacco: Every Day Comments:11-20 cigarettes/da y Alcohol Use Standard Drinks/Week Comments Yes 1 (1 standard drink = 0.6 oz pur e alcohol) caffine: energy drink daily PHQ-2 Answer Date Recorded Patient Health Questionnaire-2 Score 0 11/01/2023 Comments No Sex and Gender Information Value Date Recorded Sex Assigned at Female 01/28/2024 6:54 PM EDT Legal Sex Female 6:36 PM EDT Gender Identity Female 01/28/2024 6:54 PM EDT Sexual Orientation Not on file documented as of this encounter Plan of Treatment Upcoming Encounters Date Type Department Care Team (Late st Contact Info) Description 07/19/2025 9:40 AM EST Office Visit [facility] [address] [place] [address] Mireille Varela CLIN NURSE [address] [place] [address] documented as of this encounter Procedures Procedure Name Priority Date/Time Associated Diagnosis Comments FL ARTHROGRAM HIP LT 02/28/2024 9:09 AM EDT documented in this encounter Results * FL ARTHROGRAM HIP LT (02/28/2024 9:09 AM EDT) Anatomical Region Laterality Modality Radiographic Janice ging 02/28/2024 9:09 AM EDT Narrative 02/28/2024 9:12 AM EDT [place] [id number] Fluoroscopy Report Signed Patient: DESTINI STILL MR#: [id number] : 1990 Acct:[id number] Age/Sex: 34 / F ADM Date: 02/28/24 Loc: MRI Attending Dr: Zoey CHAMPION Ordering Physician: Zoey Vega Date of Service: 02/28/24 Procedure(s): FL arthrogram hip Accession Number(s): [id number] cc: Mireille Varela CLIN NURSE; Zoey Vega [address] [address] Patient Name: DESTINI STILL MRN: [id number] date: 1990 Sex: F Assigned Patient Location: MRI Current Patient Location: Accession/Order Number: [id number] Exam Date: 02/28/2024 07:45 Report Date: 02/28/2024 09:09 At the request of: ZOEY VEGA Procedure: FL arthrogram hip EXAMINATION: FL arthrogram hip, FL guided needle placement HISTORY: Left hip pain COMPARISON: No relevant comparison available. TECHNIQUE: An arthrogram was performed under fluoroscopic guidance using non-ionic contrast material in the usual sterile manner after obtaining informed consent. Standard level fluoroscopic mode of operation utilized. FINDINGS: JOINT: Left hip NEEDLE: 25 gauge, 3.5 spinal needle. MEDICATION: 5cc buffered 1% lidocaine for subcutaneous anesthesia 5 mL Omnipaque 300. 5 mL 1% buffered lidocaine. 0.2 mL Dotarem TECHNIQUE: Anterior approach with prior localization of the femoral artery. A single stick was successful in gaining access to the joint space. CLINICAL: 7 out of 10 pain before the injection. 5 out of 10 pain following the injection COMPLICATIONS: None. BONES: Normal. No erosion, osteophyte, fracture, or bony lesion. CARTILAGE: Normal. No visible erosion or interruption. CAPSULE: Normal. No visible capsular laxity or labrum tear. CHI-ARTICULAR: Normal. No visible chi-articular soft tissue abnormality. LOOSE BODIES: None. OTHER: Negative. PLEASE ALSO SEE THE SEPARATE ARTHROGRAM PROCEDURE REPORT. FL/FL arthrogram hip IMPRESSION: Technically successful left hip diagnostic arthrogram Electronically authenticated by: NATALIE ESPINO Date: 02/28/2024 09:09 Dictated By: Natalie Espino M.D. Signed By: 02/28/24911 DD/ 8 TD/TT: Mud Logger: Procedure Note Radiology, Radiologist, MD - 02/28/2024 [place] [address] Fluoroscopy Report Signed Patient: DESTINI STILL LMR#: [id number] : 1990Acct:[id number] Age/Sex: 34 / FADM Date: 02/28/24 Loc: MRI Attending Dr: Zoey CHAMPION Ordering Physician: Zoey Vega Date of Service: 02/28/24 Procedure(s): FL arthrogram hip Accession Number(s): [id number] cc: Mireille Varela CLIN NURSE; Zoey Vega [place] [address] Patient Name: DESTINI STILL MRN: [id number] date: 1990 Sex: F Assigned Patient Location: MRI Current Patient Location: Accession/Order Number: [id number] Exam Date: 02/28/2024 07:45 Report Date: 02/28/2024 09:09 At the request of: ZOEY VEGA Procedure: FL arthrogram hip EXAMINATION: FL arthrogram hip, FL guided needle placement HISTORY: Left hip pain COMPARISON: No relevant comparison available. TECHNIQUE: An arthrogram was performed under fluoroscopic guidance using non-ionic contrast material in the usual sterile manner after obtaining informed consent. Standard level fluoroscopic mode of operation utilized. FINDINGS: JOINT: Left hip NEEDLE: 25 gauge, 3.5 spinal needle. MEDICATION: 5cc buffered 1% lidocaine for subcutaneous anesthesia 5 mL Omnipaque 300. 5 mL 1% buffered lidocaine. 0.2 mL Dotarem TECHNIQUE: Anterior approach with prior localization of the femoralartery. A single stick was successful in gaining access to the joint space. CLINICAL: 7 out of 10 pain before the injection. 5 out of 10 painfollowing the injection COMPLICATIONS: None. BONES: Normal. No erosion, osteophyte, fracture, or bony lesion. CARTILAGE: Normal. No visible erosion or interruption. CAPSULE: Normal. No visible capsular laxity or labrum tear. CHI-ARTICULAR: Normal. No visible chi-articular soft tissue abnormality. LOOSE BODIES: None. OTHER: Negative. PLEASE ALSO SEE THE SEPARATE ARTHROGRAM PROCEDURE REPORT. FL/FL arthrogram hip IMPRESSION: Technically successful left hip diagnostic arthrogram Electronically authenticated by: NATALIE ESPINO Date: 02/28/2024 09:09 Dictated By: Natalie Espino M.D. Signed By:02/28/24911 DD/ 8 TD/TT: Mud Logger: Generic External Data Provider IMG XR PROCEDURES Final Result documented in this encounter Visit Diagnoses Not on filedocumented in this encounter Care Teams Operations Agent Relationship Specialty Start Date End Date Sergio Kirkland MD [address] [place] [address] PCP - General Family Medicine 11/01/23 Mireille Varela NP [address] [place] [address] Referring Physician Nurse Practitioner 03/03/23 Mireille Varela NP [address] [place] [phone] Nurse Practitioner Family Medicine 11/01/23 documented as of this encounter
--- OUTSIDE RECORDS SUMMARY | 2025-01-30 13:09 | XMS_ITS | Encounter Summary ---
Author Organization [facility] Address [address] [place] [address] Care Team Providers Care Coronary Clinical Specialist Name Role Phone Mireille Varela FUNDING COORDINATOR Unavailable [phone] Sergio Kirkland MD Primary Care Provider [phone] Mireille Varela FUNDING COORDINATOR Unavailable [phone] Encounter Details Date Type Department Care Team (Late st Contact Info) Description 01/17/2025 Bamboo flowsheet [facility] [address] [place] [address] Mireille Varela NP [address] [place] [address] Social History Tobacco Use Types Packs/Day Years [...] often do you attend chur ch or scientologist services? 1 to 4 times per year 04/16/2024 Do you belong to any clubs o r organizations such as jewish groups, unions, fraternal or athletic groups, or [...] Recorded Patient Health Questionnaire-2 Score 0 11/01/2023 [facility] - Occupational Stress Questionnaire Answer Date Recorded [...] any time in the past 12 m [facility], were you homeless or living in a custodial (including now)? No 04/16/2024 Comments No Sex and Gender Information Value Date Recorded Sex Assigned at Female 01/28/2024 6:54 PM EDT Legal Sex Female 6:36 PM EDT Gender Identity Female 01/28/2024 6:54 PM EDT Sexual Orientation Not on file documented as of this encounter Plan of Treatment Upcoming Encounters Date Type Department Care Team (Late Contact Info) Description 07/19/2025 9:40 AM EST Office Visit [facility] [address] [place] [address] Mireille Varela NP [address] [place] [address] documented as of this encounter Visit Diagnoses Not on filedocumented in this encounter Care Teams Coronary Clinical Specialist Relationship Specialty Start Date End Date Sergio Kirkland MD [address] [place] [phone] PCP - General Family Medicine 11/01/23 Mireille Varela NP [address] [place] [address] Referring Physician Nurse Practitioner 03/03/23 Mireille Varela NP [address] [place] [address] Nurse Practitioner Family Medicine 11/01/23 documented as of this encounter
--- OUTSIDE RECORDS SUMMARY | 2025-01-30 13:09 | XMS_ITS | Clinical Summary ---
Author Organization [facility] Address [address] [place] [address] Care Team Providers Care Printing Plate Maker Name Role Phone Mireille Varela NP Unavailable [phone] Sergio Kirkland MD Primary Care Provider [phone] Mireille Varela PREFLIGHT INSPECTOR Unavailable [phone] Allergies No known active allergies Medications gabapentin (Neurontin) 400 MG capsuleIndicat ions:Left hip pain TAKE 1 CAPSULE (400 MG) BY MOUTH IN THE MORNING AND 1 CAPSULE (400 MG) BEFORE BEDTIME. 60 capsule 2 5 02/15/20 25 Active gabapentin (Neurontin) 400 MG capsuleIndicat ions:Left hip pain Take 1 capsule (400 mg) by mouth in the morning and 1 capsule (400 mg) before bedtime. 60 capsule 2 5 01/16/20 25 Discontinued Active Problems Problem Noted Date Diagnosed Date Encounter for adult wellness visit 01/17/2025 Assessment & Plan (01/17/2025 6:21 AM EDT): Reviewed Ht/Wt/BMI Recommend eye exam yearly Recommend dental exams twice a year Balance work/leisure activities Exercises is recommended most days of the week (appropriate as chronic conditions allow) Follow up yearly and prn Chronic pain of left knee 01/17/2025 Assessment & Plan (01/17/2025 10:18 AM EDT): Check plain film xray Consider MRI as well Left hip pain 07/26/2023 Assessment & Plan (01/17/2025 10:18 AM EDT): Hx: john to BID, has had MRI lumbar, hip, as well with arthrogram hip, and injections.. referred to Dr Macdonald say mid December 2024 Possible scope pending vs hip replacement Assessment & Plan (10/26/2024 7:45 AM EDT): Last appt: increased john to BID, referred to [facility], who stated needed to see another ortho Referral sent to: Sheng Macdonald in [place], [place], Has had MRI lumbar and hip and MRI with arthro gram, as well as injections Assessment & Plan (07/24/2024 1:40 PM EST): Will refer to new ortho [facility] We will cont john, but increase dose to 400mg BID OARRS reviewed Fu in 3 months Has had MRI lumbar and hip and MRI with arthro gram, as well as injections Assessment & Plan (04/19/2024 2:52 PM EDT): Continue with ortho We will cont john OARRS reviewed Fu in 3 months Assessment & Plan (11/01/2023 6:51 PM EDT): Has upcoming appt with ortho this week Fu here in 8 weeks Assessment & Plan (07/26/2023 5:25 PM EST): As per pain mgmt Left lumbar radiculopathy 07/26/2023 Assessment & Plan (07/24/2024 6:47 AM EST): Continue with pain mgmt Next injection 08/05/23, possible ablation in future Fu in 3 months, cont John Assessment & Plan (07/26/2023 5:25 PM EST): Continue with pain mgmt Next injection 08/05/23, possible ablation in future Fu in 3 months, cont John Chronic laryngitis 07/22/2023 Current smoker 07/22/2023 Overview (07/22/2023): Added secondary to documentation in Social History. Assessment & Plan (10/26/2024 7:45 AM EDT): The patient has been advised of the risks of continued smoking: stroke, KS, all forms of cancer, lung disease, and . Options for quitting smoking include: cold turkey, hypnosis, acupuncture, nicotine replacement meds (gum, lozenges, and patches), Buproprion, and Varenicline. At this time pt is encouraged to evaluate their goals for wanting to quit smoking, and reach out to provider when ready to start this process Vaping Nicotine Assessment & Plan (07/24/2024 1:40 PM EST): The patient has been advised of the risks of continued smoking: stroke, KS, all forms of cancer, lung disease, and . Options for quitting smoking include: cold turkey, hypnosis, acupuncture, nicotine replacement meds (gum, lozenges, and patches), Buproprion, and Varenicline. At this time pt is encouraged to evaluate their goals for wanting to quit smoking, and reach out to provider when ready to start this process Vaping Nicotine LPRD (laryngopharyngeal reflux disease) 07/22/20 23 Odynophagia 07/22/2023 Lumbar spondylosis 07/22/2023 Assessment & Plan (11/01/2023 6:51 PM EDT): Doing better with this Resolved Problems Problem Noted Date Diagnosed Date Resolved Date COVID-19 07/26/2023 04/19/2024 Overweight (BMI 25.0-29.9) 07/26/2023 0 04/19/2024 Encounters Date Type Department Care Team Description 01/17/2025 9:40 AM EDT [facility] Visit [facility] [address] [place] [address] Mireille Varela NP Encounter for adult wellness visit (Primary Dx); Current smoker; Left hip pain; Chronic pain of left knee 01/17/2025 Bamboo flowsheet [facility] [address] [place] [address] iMreille Varela NP 01/14/2025 Refill [facility] [address] [place] [address] Mireille Varela NP Left hip pain from Last 3 Months Immunizations Immunization Administration Dates Next Due Hep B, Adolescent or Pediatric 08/14/2005 Influenza, Unspecified 06/27/2020,06/01/2019,05/2018,05/09/2015 Tdap 05/09/2015 Family History Medical History Relation Name Comments Breast cancer Father's Sister Diabetes Maternal Grandfather Heart disease Maternal Grandmother Relation Name Status Comments Father Alive Father's Sister Maternal Grandfather Maternal Grandmother Mother Alive Social History Tobacco Use Types Packs/Day Years Used Date Smoking Tobacco: Every Day Tobacco Cessation:Ready to Q uit: Not Asked; Counseling Given: Not Answered Comments:11-20 cigarettes/day Alcohol Use Standard Drinks/Week Comments Yes 1 [...] any clubs o r organizations such as restorationism groups, unions, fraternal or athletic groups, or [...] Recorded Patient Health Questionnaire-2 Score 0 11/01/2023 [facility] - Occupational Stress [...] any time in the past 12 m [facility], were you homeless or living in a long term (including now)? No 04/16/2024 Comments No Sex and Gender Information Value Date Recorded Sex Assigned at Female 01/28/2024 6:54 PM EDT Legal Sex Female 6:36 PM EDT Gender Identity Female 01/28/2024 6:54 PM EDT Sexual Orientation Not on file Last Filed Vital Signs Vital Sign Reading Time Taken Comments Blood Pressure 100/60 01/17/2025 9:38 AM EDT Pulse 70 01/17/2025 9:38 AM EDT Temperature 36.7 C (98 F) 01/17/2025 9:38 AM EDT Respiratory Rate 18 01/17/2025 9:38 AM EDT Oxygen Saturation 98% 01/17/2025 9:38 AM EDT Inhaled Oxygen Concentration - - Weight 63 kg (139 lb) 01/17/2025 9:38 AM EDT Height 170.2 cm (5' 7 ) 07/24/2024 1:04 PM EST Body Mass Index 21.77 07/24/2024 1:04 PM EST Plan of Treatment Upcoming Encounters Date Type Department Care Team (Late st Contact Info) Description 07/19/2025 9:40 AM EST [facility] [address] [place] [address] Mireille Varela NP [address] [place] [address] Health Maintenance Due Date Last Done Comments HPV/Cotest 2019 Cervical Cancer Screening 04/19/2027 Pap Smear 04/19/2027 04/19/2024 (Patient Refused) Influenza Vaccine Discontinued 06/27/2020, , 06/25/2018, Additional history exists Insurance [employer] Care Teams Printing Plate Maker Relationship Specialty Start Date End Date Sergio Kirkland MD [address] [place] [address] PCP - General Family Medicine 11/01/23 Mireille Varela NP [address] [place] [address] Referring Physician Nurse Practitioner 03/03/23 Mireille Varela NP [address] [place] [address] Nurse Practitioner Family Medicine 11/01/23
--- OUTSIDE RECORDS SUMMARY | 2025-01-30 13:09 | XMS_ITS | Encounter Summary ---
Author Organization [facility] Address [address] [place] [address] Care Team Providers Care Apartment Leasing Consultant Name Role Phone Mireille Varela SAFETY CLOTHING AND EQUIPMENT DEVELOPER Unavailable [phone] Sergio Kirkland MD Primary Care Provider [phone] Mireille Varela SAFETY CLOTHING AND EQUIPMENT DEVELOPER Unavailable [phone] Encounter Details Date Type Department Care [...] Visit [facility] [address] [place] [address] Mireille Varela SAFETY CLOTHING AND EQUIPMENT DEVELOPER [address] [place] [address] documented as of this encounter Procedures Procedure Name Priority Date/Time Associated Diagnosis Comments FL GUIDED NEEDLE PLACEMENT 02/28/2024 9:09 AM EDT documented in this encounter Results * FL GUIDED NEEDLE PLACEMENT (02/28/2024 9:09 AM EDT) Anatomical Region Laterality Modality Radiographic Janice ging 02/28/2024 9:09 AM EDT Narrative 02/28/2024 9:11 [place] [address] Fluoroscopy Report Signed Patient: DESTINI STILL MR#: [id number] : 1990 Acct:[id number] Age/Sex: 34 / F ADM Date: 02/28/24 Loc: MRI Attending Dr: Zoey CHAMPION Ordering Physician: Zoey Vega Date of Service: 02/28/24 Procedure(s): FL guided needle placement Accession Number(s): [id number] cc: Mireille Varela SAFETY CLOTHING AND EQUIPMENT DEVELOPER; Zoey Vega [address] [address] Patient Name: DESTINI STILL MRN: [id number] date: 1990 Sex: F Assigned Patient Location: MRI Current Patient Location: Accession/Order Number: [id number] Exam Date: 02/28/2024 07:45 Report Date: 02/28/2024 09:09 At the request of: ZOEY VEGA Procedure: FL guided needle placement EXAMINATION: FL arthrogram hip, FL guided needle [...] SEE THE SEPARATE ARTHROGRAM PROCEDURE REPORT. FL/FL guided needle placement IMPRESSION: Technically successful left hip diagnostic arthrogram Electronically authenticated by: NATALIE ESPINO Date: 02/28/2024 09:09 Dictated By: Natalie Espino M.D. Signed By: 02/28/24910 DD/ 8 TD/TT: Ordnance Engineer: Procedure Note Radiology, Radiologist, MD - 02/28/2024 [place] [address] Fluoroscopy Report Signed Patient: DESTINI STILL LMR#: [id number] : 1990Acct:[id number] Age/Sex: 34 / FADM Date: 02/28/24 Loc: MRI Attending Dr: Zoey CHAMPION Ordering Physician: Zoey Vega Date of Service: 02/28/24 Procedure(s): FL guided needle placement Accession Number(s): [id number] cc: Mireille Varela SAFETY CLOTHING AND EQUIPMENT DEVELOPER; Zoey Vega [place] [address] Patient Name: DESTINI STILL MRN: [id number] date: 1990 Sex: F Assigned Patient Location: MRI Current Patient Location: Accession/Order Number: [id number] Exam Date: 02/28/2024 07:45 Report Date: 02/28/2024 09:09 At the request of: ZOEY VEGA Procedure: FL guided needle placement EXAMINATION: FL arthrogram hip, FL guided needle [...] SEE THE SEPARATE ARTHROGRAM PROCEDURE REPORT. FL/FL guided needle placement IMPRESSION: Technically successful left hip diagnostic arthrogram Electronically authenticated by: NATALIE ESPINO Date: 02/28/2024 09:09 Dictated By: Natalie Espino M.D. Signed By:02/28/24910 DD/ 8 TD/TT: Ordnance Engineer: Generic External Data Provider IMG XR PROCEDURES Final Result documented in this encounter Visit Diagnoses Not on filedocumented in this encounter Care Teams Apartment Leasing Consultant Relationship Specialty Start Date End Date Sergio Kirkland MD [address] [place] [address] PCP - General Family Medicine 11/01/23 Mireille Varela NP [address] [place] [address] Referring Physician Nurse Practitioner 03/03/23 Mireille Varela NP [address] [place] [address] Nurse Practitioner Family Medicine 11/01/23 documented as of this encounter
--- OUTSIDE RECORDS SUMMARY | 2025-01-30 13:09 | XMS_ITS | Patient Health Record ---
Author Organization [facility] Address [address] [place] [address] Care Team Providers Care Vaccine Specialist Name Role Phone Marilyn Lisa Unavailable [phone] Sheng Arenas Unavailable [phone] Zoey Salas Unavailable Allergies No Known Allergies Reason For Referral Reason APPROVED............ ..............NOT SCHEDULED....................[facility] LEFT HIP MRI ARTHROGRAM TO BE DONE AT [facility] Diagnosis 1 Trochanteric bursiti s, left hip (M70.62) Referral Organization [facility] Referring Provider First Name Marilyn Referring Provider Last Name [facility] Cabrera Referring Provider Speciality Orthopedic Surgery Referred Organization [facility] Referred Address [address] [place], [place],[address], Procedure 1 MRI Joint Lower Extr emity W/Dye (24243) General Notes Mone Hernandez 2023 09:00:17 AM >Yas Kayla 02/04/2024 10:16:42 AM > WAITING ON TODAY'S OFFICE NOTEDavid Dawn 02/09/2024 11:58:23 AM >note doneYas Kayla 02/09/2024 12:09:15 PM > AUTHORIZATION REQUEST SUBMITTED WITH CLINICALS VIA [facility], TRACKING # [id number], Tiffany Sorenson 02/11/2024 07:07:30 AM > AUTHORIZATION # [id number] APPROVED AND VALID 02/09/24-03/10/24 PER FAX BACK FROM [facility]. SCANNED INTO CHART AND FAXED TO [facility]., Mone Hernandez 02/11/2024 09:10:57 AM >FAXED Referral Priority Routine Reason PLEASE CONTACT CARMELITA HANSEN TO SCHEDULE WITH INTERVENTIONAL RADIOLOGY FOR LEFT HIP INTRAARTICULAR INJECTION, THANK YOU Diagnosis 1 Trochanteric bursiti s of left hip (M70.62) Referral Organization [facility] Office Referring Provider First Name Sheng Referring Provider Last Name Dagoberto Referring Provider Speciality Orthopedic Surgery [facility] Referred Address [place], [place], Referral Priority Routine Social History Tobacco Use: Social History Observation Description Date Details (start date - stop date) Current Smoker NA - NA AUDIT-C (Standard) Question Answer Notes Did you have a drink containing alcohol in the p ast year? No Points 0 Interpretation Negative Tobacco Control (Standard) Question Answer Notes Tobacco use: Current smoker How many cigarettes a day do you smoke? 5 or les s How soon after you wake up do you smoke your fir st cigarette? Within 5 minutes Problems Problem Type SNOMED Code ICD Code Onset Dates Problem Status W/U Status Risk Notes Problem [id number] Trochanteric bursitis of left hip (M70.62) Active confirmed Problem [id number] Other intervertebral disc degeneration, lumbosacral region (M51.37) Active confirmed Vital Signs Height 5 ft 8 in in 04/10/2024 Weight 140 lbs 04/10/2024 BMI 21.28 04/10/2024 Encounters Encounter Location Date Provider Diagnosis [address] [place] [address] [place] [address] 02/04/2024 [facility] Trochanteric bursitis, left hip M70.62 and Hip pain, left M25.[address] [place] [address] [place] [address] 04/10/2024 Sheng Arenas Trochanteric bursitis of left hip M70.[address] [place] [address] [place] [address] 05/22/2024 Sheng Arenas Trochanteric bursitis of left hip M70.62 [facility] [place] [address] [place] [address] 03/03/2024 Marilyn Lisa Assessments Encounter Date Diagnosis (ICD Code) Assessment Notes Treatment Notes Treatment Clinical Notes Section Notes 02/04/2024 Hip pain, left (ICD-10 - M25.552) 1. Left trochanteric bursitis 2. Left hip pain, suspected labral tear 02/04/2024 Trochanteric bursitis, left hip (ICD-10 - M70.62) 1. Left trochanteric bursitis 2. Left hip pain, suspected labral tear 04/10/2024 Trochanteric bursitis of left hip (ICD-10 - M70.62) 05/22/2024 Trochanteric bursitis of left hip (ICD-10 - M70.62) 02/04/2024 Other Plan established by Dr. David. On exam patient is painful with ROM of the left hip but also with palpation of the left greater trochanter. She would like a steroid injection for her troch bursa today, which I provided for her. Her last hip MRI over a year ago revealed a left hip joint effusion of uncertain etiology, no loose bodies, fracture, or labral tear were evident. Her history and exam are suspicious for a labral tear, for which I have ordered an MR arthrogram of her left hip to better evaluate for this. I will have her follow-up with Dr. Arenas to go over the results of her MRI and further recommendations. The patient is very much in agreement with the treatment and/or diagnostic plan set forth and all questions were answered to the patient's satisfaction. Thanks once again. If we can be of further service to your patients with disorders of the spine, cervical, thoracic, or lumbar, please do not hesitate to contact Dr. David. Best regards, 1. Left trochanteric bursitis 2. Left hip pain, suspected labral tear 04/10/2024 Other For left hip osteoarthritis we will stop the Mobic Celebrex. She is interested in an intra-articular corticosteroid injection. This will be ordered through interventional radiology. She will follow-up in 6 weeks to reassess her progress. I have discussed with her that ultimately she would likely need a hip replacement surgery in the future. I have also suggested that she seek a different job due to the concern for this much demand on her hip, resulting in persistent pain. Import medication 05/22/2024 Other For her left hip osteoarthritis we have discussed again today treatment options including medications, repeat injections, changing jobs, hip replacement surgery. For now she will continue with the ParcelebChargemaster. She will call if she would like to repeat an intra-articular hip injection which this time we would order through interventional radiology as opposed to pain management. Import medication Plan Of Treatment Pending Test Test Name Order Date MRI LEFT HIP W/O CONTRAST 11/12/2023 HIP ARTHROGRAM WITH INJ PROC LT 02/04/20 24 AEL-Left Hip Xray and Inject ion with Interventional Radiology (Skin Injection: 1% Lidocaine without Epinephrine, Hip Injection: 4ml 0.5% Marcaine without Epinephrine, 1ml Depomedrol 80mg/ml) 04/10/2024 MRI Left Hip w/ Contrast 02/04/2024 [facility]- PT/OT EVAL AND TREAT 3X/WEEK FOR 6 WEEKS 11/12/2023 Insurance Providers Payer Name Payer Address Payer Phone Subscriber Number Group Number Insured Name Patient Relationship to Insured Coverage Start Date Coverage End Date [employer] [address] [address] [place] [address] [id number] ALEXANDRE LIZ Self - patient is the insured Medical (General) History Medical History History ICD Code Ovarian Cysts
--- OUTSIDE RECORDS SUMMARY | 2025-01-30 13:09 | XMS_ITS | Encounter Summary ---
Author Organization [facility] Address [address] [place] [address] Care Team Providers Care Book Trimmer Name Role Phone Mireille Varela COMMUNITY OUTREACH DIRECTOR Unavailable [phone] Sergio Kirkland MD Primary Care Provider [phone] Mireille Varela COMMUNITY OUTREACH DIRECTOR Unavailable [phone] Encounter Details Date Type Department Care Team (Late st Contact Info) Description 08/01/2024 Orders Only [facility] [address] [place] [address] Mireille Varela NP [address] [place] [address] Left hip pain (Primary Dx) Social History Tobacco Use Types Packs/Day Years [...] often do you attend chur ch or judaism services? 1 to 4 times per year 04/16/2024 Do you belong to any clubs o r organizations such as mosque groups, unions, fraternal or athletic groups, or [...] Recorded Patient Health Questionnaire-2 Score 0 11/01/2023 [facility] - [facility]ational Stress Questionnaire Answer Date [...] any time in the past 12 m [facility], were you homeless or living in a alf (including now)? No 04/16/2024 Comments No Sex [...] Office Visit [facility] [address] [place] [address] Mireille Varela NP [address] [place] [address] documented as of this encounter Visit Diagnoses Diagnosis Left hip pain- Primary Pain in joint, pelvic region and thigh documented in this encounter Care Teams Book Trimmer Relationship Specialty Start Date End Date Sergio Kirkland MD [address] [place] [address] PCP - General Family Medicine 11/01/23 Mireille Varela NP [address] [place] [address] Referring Physician Nurse Practitioner 03/03/23 Mireille Varela NP [address] [place] [address] Nurse Practitioner Family Medicine 11/01/23 documented as of this encounter
--- OUTSIDE RECORDS SUMMARY | 2025-01-30 13:09 | XMS_ITS | Patient Health Record ---
Author Organization [facility] Address [address] [place] [address] Care Team Providers Care Customer Equipment Engineer Name Role Phone Shanda Gao Primary Care Provider Lenora Martinez [facility] [phone] Reason For Referral No Information Encounters Encounter Location Date Provider Diagnosis [facility] [address] [place] [address] 11/28/2024 Lenora Martinez Encounter for dental examination and cleaning with abnormal findings Z01.21 ; Other dental procedure status Z98.818 ; Disturbances in tooth eruption K00.6 and Dental caries on pit and fissure surface penetrating into dentin K02.52 Assessments Encounter Date Diagnosis (ICD Code) Assessment Notes Treatment Notes Treatment Clinical Notes Section Notes 11/28/2024 Encounter for dental examination and cleaning with abnormal findings (ICD-10 - Z01.21) 11/28/2024 Other dental procedure status (ICD-10 - Z98.818) 11/28/2024 Disturbances in tooth eruption (ICD-10 - K00.6) 11/28/2024 Dental caries on pit and fissure surface penetrating into dentin (ICD-10 - K02.52) Plan Of Treatment Next Appt Details Provider Name:Lenora ochoa, 03/29/2025 08:30:00 AM, [address], [address], Provider Name:Lenora ochoa, 04/02/2025 01:00:00 PM, [address], [place], [address], Provider Name:Gissel Gamboa, 06/19/2025 08:45:00 AM, [address] [place], [address], Insurance Providers Payer Name Payer Address Payer Phone Subscriber Number Group Number Insured Name Patient Relationship to Insured Coverage Start Date Coverage End Date [employer] [place] [employer] [address] [place] [address] [id number] ALEXANDRE LIZ Self - patient is the insured 3 4 [employer] [facility] [place] [address] [place] [address] [id number] ALEXANDRE LIZ Self - patient is the insured [address] [facility] 22. [address] CLAIMS DEPT [facility] [place] [address] [id number] ALEXANDRE LIZ Self - patient is the insured 2 3 [facility] BUCKEYE-te rmed [address] [place] [address] [phone] [id number] ALEXANDRE LIZ Self - patient is the insured 2 3 zDENTAL BUCKEYE-te rmed [address] [address] [place] [address] [id number] ALEXANDRE LIZ Self - patient is the insured 2 3 zDental MEDICAID [employer] after BUCKEYE-te rmed 22 [address] [place] [address] [id number] ALEXANDRE LIZ Self - patient is the insured 2 3 zDENTAL CHARY-te rmed 22 [address] [address] [place] [address] [id number] AGUSTO ALEXANDRE Self - patient is the insured 2 3 Dental [place] [employer] [address] [address] [place] [address] [id number] AGUSTOALEXANDRE Self - patient is the insured 3 4 Dental Wrap [facility] [place] [address] [place] [address] [id number] ASHAGULSHANSHIRLEYALEXANDRE Self - patient is the insured 3 4 DENTAL [employer] PPO [address] [place] [address] [id number] ASHAALEXANDRE GAFFNEY Self - patient is the insured 5
--- OUTSIDE RECORDS SUMMARY | 2025-01-30 13:09 | XMS_ITS | Encounter Summary ---
Author Organization [facility] Address [address] [place] [address] Care Team Providers Care Sleeve Setter Lockstitch Name Role Phone Mireille Varela PERFORMANCE IMPROVEMENT COORDINATOR Unavailable [phone] Sergio Kirkland MD Primary Care Provider [phone] Mireille Varela PERFORMANCE IMPROVEMENT COORDINATOR Unavailable [phone] Encounter Details Date Type Department Care Team (Late st Contact Info) Description 04/19/2024 Clinisync Result Encounter [facility] External Department Unsolicited [...] often do you attend chur ch or taoist services? 1 to 4 times per year [...] Recorded Patient Health Questionnaire-2 Score 0 11/01/2023 [facility] - Occupational Stress Questionnaire Answer Date Recorded [...] any time in the past 12 m [facility], were you homeless or living in a care home (including now)? No 04/16/2024 Comments No Sex [...] 07/19/2025 9:40 AM EST Office Visit [facility] [address] [place] [address] Mireille Varela NP [address] [place] [address] documented as of this encounter Procedures Procedure Name Priority Date/Time Associated Diagnosis Comments FL GUIDED INJECTION HIP LEFT 04/19/2024 10:20 AM EDT documented in this encounter Results * FL guided injection hip left (04/19/2024 10:20 AM EDT) Anatomical Region Laterality Modality Hip Left Radiographic Janice ging 04/19/2024 10:2 0 AM EDT Narrative 04/19/2024 10:23 AM EDT The [address] [address] Fluoroscopy Report Signed Patient: DESTINI STILL MR#: [id number] : 1990 Acct:[id number] Age/Sex: 34 / F ADM Date: 04/19/24 Loc: [place] Attending Dr: Sheng Gil M.D. Ordering Physician: Sheng Gil M.D. Date of Service: 04/19/24 Procedure(s): FL hip inj LT Accession Number(s): [id number] cc: Mireille Varela PERFORMANCE IMPROVEMENT COORDINATOR; Sheng Gil M.D. The [place] [id number] Patient Name: DESTINI STILL MRN: [facility]:[id number] date: 1990 Sex: F Assigned Patient Location: [place] Current Patient Location: Accession/Order Number: [id number] Exam Date: 04/19/2024 08:30 Report Date: 04/19/2024 10:20 At the request of: SHENG GIL Procedure: FL hip inj LT EXAMINATION: FL hip inj LT HISTORY: left trochanter bursitis FLUORO DOSE: (Cannot calculate) mGy Reference air kerma (Ka,r) COMPARISON: No relevant comparison available. TECHNIQUE: An arthrogram was performed under fluoroscopic guidance using non-ionic contrast material in the usual sterile manner after obtaining informed consent. Standard level fluoroscopic mode of operation utilized. FINDINGS: JOINT: Left hip NEEDLE: 25 gauge, 3.5 spinal needle. MEDICATION: 2 mL buffered 1% lidocaine for subcutaneous anesthesia. 2 mL Omnipaque-240 iodinated contrast to visualize the joint space. 80 mg Depo-Medrol,, 4 mL 0.5% Marcaine, and 3 mL Omnipaque 240 injected into the joint space. TECHNIQUE: Anterior approach with prior localization of the femoral artery. A single stick was successful in gaining access to the joint space. CLINICAL: Improvement of joint pain post injection (4/10 preinjection; 0/10 post injection). COMPLICATIONS: None. OTHER: Negative. FL/FL hip inj LT IMPRESSION: 1. Successful left hip injection with decreased pain post injection. Electronically authenticated by: SHENG LIN Date: 04/19/2024 10:20 Dictated By: Sheng Lin M.D. Signed By: 04/19/24 1023 DD/ 1020 TD/TT: Propeller Inspector: Procedure Note Radiology, Radiologist, - 04/19/[address] [place] [address] Fluoroscopy Report Signed Patient: DESTINI STILL LMR#: [id number] : 1990Acct:[id number] Age/Sex: 34 / FADM Date: 04/19/24 Loc: [place] Attending Dr: Sheng Gil M.D. Ordering Physician: Sheng Gil M.D. Date of Service: 04/19/24 Procedure(s): FL hip inj LT Accession Number(s): [id number] cc: Mireille Varela NP; Sheng Gil M.D. [place] [id number] Patient Name: DESTINI STILL MRN: [id number] date: 1990 Sex: F Assigned Patient Location: [place] Current Patient Location: Accession/Order Number: [id number] Exam Date: 04/19/2024 08:30 Report Date: 04/19/2024 10:20 At the request of: SHENG GIL Procedure: FL hip inj LT EXAMINATION: FL hip inj LT HISTORY: left trochanter bursitis FLUORO DOSE: (Cannot calculate) mGy Reference air kerma (Ka,r) COMPARISON: No relevant comparison available. TECHNIQUE: An arthrogram was performed under fluoroscopic guidance using non-ionic contrast material in the usual sterile manner after obtaining informed consent. Standard level fluoroscopic mode of operation utilized. FINDINGS: JOINT: Left hip NEEDLE: 25 gauge, 3.5 spinal needle. MEDICATION: 2 mL buffered 1% lidocaine for subcutaneous anesthesia. 2 mL Omnipaque-240 iodinated contrast to visualize the joint space. 80 mg Depo-Medrol,, 4 mL 0.5% Marcaine, and 3 mL Omnipaque 240 injected into the joint space. TECHNIQUE: Anterior approach with prior localization of the femoralartery. A single stick was successful in gaining access to the joint space. CLINICAL: Improvement of joint pain post injection (4/10 preinjection;0/10 post injection). COMPLICATIONS: None. OTHER: Negative. FL/FL hip inj LT IMPRESSION: 1. Successful left hip injection with decreased pain post injection. Electronically authenticated by: SHENG LIN Date: 04/19/2024 10:20 Dictated By: Sheng Lin M.D. Signed By:04/19/24 1023 DD/ 1020 TD/TT: Propeller Inspector: us Generic External Data Provider IMG FLUOROSCOPY P ROCEDURES Final Result documented in this encounter Visit Diagnoses Not on filedocumented in this encounter Care Teams Sleeve Setter Lockstitch Relationship Specialty Start Date End Date Sergio Kirkland MD [address] [place] [address] PCP - General Family Medicine 11/01/23 Mireille Varela NP [address] [place] [address] Referring Physician Nurse Practitioner 03/03/23 Mireille Varela NP [address] [place] [address] Nurse Practitioner Family Medicine 11/01/23 documented as of this encounter
--- OUTSIDE RECORDS SUMMARY | 2025-01-30 13:10 | XMS_ITS | Encounter Summary ---
Author Organization [facility] Address [address] [place] [address] Care Team Providers Care Human Resource Internship Name Role Phone Mireille Varela BIOLOGICAL AIDE Unavailable Sergio Kirkland MD Primary Care Provider [phone] Mireille Varela BIOLOGICAL AIDE Unavailable [phone] Encounter Details Date Type Department Care Team (Late st Contact Info) Description 02/28/2024 Orders Only [facility] [address] [address] Zoey Kay PA [address] [place] [address] [place] [address] Social History Tobacco Use Types Packs/Day Years [...] Visit [facility] [address] [place] [address] Mireille Varela NP [address] [place] [address] documented as of this encounter Procedures Procedure Name Priority Date/Time Associated Diagnosis Comments SCANNED LABS Routine 02/28/2024 10:03 AM EDT documented in this encounter Results * SCANNED LABS (02/28/2024 10:03 AM EDT) Zoey [facility] CHG PERFORMABLES Final Result documented in this encounter Visit Diagnoses Not on filedocumented in this encounter Care Teams Human Resource Internship Relationship Specialty Start Date End Date Sergio Kirkland MD [address] [place] [address] PCP - General Family Medicine 11/01/23 Mireille Varela NP [address] [place] [address] Referring Physician Nurse Practitioner 03/03/23 Mireille Varela NP [address] [place] [address] Nurse Practitioner Family Medicine 11/01/23 documented as of this encounter
--- OUTSIDE RECORDS SUMMARY | 2025-01-30 13:10 | XMS_ITS | Encounter Summary ---
Author Organization [facility] Address [address] [place] [address] Care Team Providers Care Pole Tester Name Role Phone Sergio Kirkland MD Primary Care Provider [phone] Mireille Varela PRODUCT FINISHER Unavailable [phone] Sergio Kirlkand MD Primary Care Provider [phone] Mireille Varela NP Unavailable [phone] Encounter Details Date Type Department Care Team (Late st Contact Info) Description 07/25/2023 Abstract [facility] [address] [place] [address] Mireille Varela, PRODUCT FINISHER [address] [place] [address] Social History Tobacco Use Types Packs/Day Years Used Date Smoking Tobacco: Every Day Cigarettes Tobacco Cessation:Ready to Q uit: Not Asked; Counseling Given: Not Answered Comments:11-20 cigarettes/day Alcohol Use Standard Drinks/Week Comments Yes 1 (1 standard drink = 0.6 oz pur e alcohol) Comments No Sex and Gender Information Value [...] [facility] [address] [place] [address] Mireille Varela NP [address] [place] [address] documented as of this encounter Visit Diagnoses Not on filedocumented in this encounter Care Teams Pole Tester Relationship Specialty Start Date End Date Sergio Kirkland MD PCP - General Family Medicine 03/03/23 10/31/23 Sergio Kirkland MD [address] [place] [address] PCP - General Family Medicine 11/01/23 Mireille Varela NP [address] [place] [address] Referring Physician Nurse Practitioner 03/03/23 Mireille Varela NP [address] [place] [address] Nurse Practitioner Family Medicine 11/01/23 documented as of this encounter
--- OUTSIDE RECORDS SUMMARY | 2025-01-30 13:10 | XMS_ITS | Encounter Summary ---
Author Organization [facility] Address [address] [place] [address] Care Team Providers Care Financial Officer Name Role Phone Mireille Varela GROCERY SACKER Unavailable [phone] Sergio Kirkland MD Primary Care Provider [phone] Mireille Varela GROCERY SACKER Unavailable [phone] Reason for Visit * Reason Comments Med Refill Encounter Details Date Type Department Care Team (Late st Contact Info) Description 03/22/2024 Refill [facility] [address] [place] [address] Mireille Varela, GROCERY SACKER [address] [place] [address] Left lumbar radiculopathy Social History Tobacco Use Types Packs/Day Years [...] Office Visit [facility] [address] [place] [address] Mireille Varela NP [address] [place] [address] documented as of this encounter Visit Diagnoses Diagnosis Left lumbar radiculopathy Thoracic or lumbosacral neuritis or radiculitis, unspecified documented in this encounter Care Teams Financial Officer Relationship Specialty Start Date End Date Sergio Kirkland MD [address] [place] [address] PCP - General Family Medicine 11/01/23 Mireille Varela NP [address] [place] [address] Referring Physician Nurse Practitioner 03/03/23 Mireille Varela NP [address] [place] [place] [address] Nurse Practitioner Family Medicine 11/01/23 documented as of this encounter
--- OUTSIDE RECORDS SUMMARY | 2025-01-30 13:10 | XMS_ITS | Encounter Summary ---
Author Organization [facility] Address [address] [place] [address] Care Team Providers Care Magnetic Tape Winder Name Role Phone Mireille Varela [employer] Unavailable [phone] Sergio Kirkland MD Primary Care Provider [phone] Mireille Varela [employer] Unavailable [phone] Encounter Details Date Type Department Care Team (Late st Contact Info) Description 03/01/2024 Clinisync Result Encounter [facility] External Department Unsolicited [...] Visit [facility] [address] [place] [address] Mireille Varela [employer]ACH [address] [place] [address] documented as of this encounter Procedures Procedure Name Priority Date/Time Associated Diagnosis Comments MR HIP LEFT W IV CONTRAST 03/01/2024 7:42 AM EDT documented in this encounter Results * MR hip left w IV contrast (03/01/2024 7:42 AM EDT) Anatomical Region Laterality Modality Lower Extremities, Hip Left Magnetic Resonance 03/01/2024 7:42 AM EDT Narrative 03/01/2024 7:44 [place] [address] Magnetic Resonance Report Signed Patient: DESTINI STILL MR#: [id number] : 1990 Acct:[id number] Age/Sex: 34 / F ADM Date: 02/28/24 Loc: MRI Attending Dr: Zoey CHAMPION Ordering Physician: Zoey Vega Date of Service: 02/28/24 Procedure(s): MR hip LT w con Accession Number(s): [id number] cc: Mireille Varela [employer]; Zoey Vega [address] [address] Patient Name: DESTINI STILL MRN: [id number] date: 1990 Sex: F Assigned Patient Location: MRI Current Patient Location: MRI Accession/Order Number: [id number] Exam Date: 02/28/2024 08:35 Report Date: 03/01/2024 07:42 At the request of: ZOEY VEGA Procedure: MR hip LT w con EXAMINATION: MR hip LT w con HISTORY: Left hip pain COMPARISON: No relevant comparison available. TECHNIQUE: A comprehensive examination was performed utilizing a variety of imaging planes and imaging parameters to optimize visualization of suspected pathology. Images were obtained without and/or with IV contrast as indicated by type of examination. FINDINGS: FEMORAL HEAD: Tiny degenerative osteophytes along the articular margins. No fracture, dislocation, or abnormal marrow signal to suggest avascular necrosis. ACETABULUM: No fracture or significant arthropathy. OTHER BONES: Normal appearance of the visualized portion of the pelvis. LABRUM: Subtle step off along the undersurface margin of the superior labrum without convincing tear. EFFUSIONS: Large joint effusion with multiple loose bodies within the joint capsule, largest is approximately 13 mm. BURSAE: No evidence of iliopsoas or trochanteric bursitis. TENDONS: Normal gluteus tendons, iliopsoas tendon, and hamstring origin. MUSCLES: No tear or strain. No inappropriate atrophy. OTHER: Negative. MR/MR hip LT w con IMPRESSION: 1. Large joint effusion containing multiple loose bodies. No appreciable donor site(s). 2. Mild degenerative joint disease. 3. Subtle/small step-off along the undersurface margin of the superior labrum without convincing tear; remote injury/sequela of remote small tear is suspected. Electronically authenticated by: SHENG LIN Date: 03/01/2024 07:42 Dictated By: Sheng Lin M.D. Signed By: 03/01/2444 DD/ TD/TT: Color Blender: Procedure Note Radiology, Radiologist, MD - 03/01/2024 [place] [address] Magnetic Resonance Report Signed Patient: DESTINI STILL LMR#: [id number] : 1990Acct:[id number] Age/Sex: 34 / FADM Date: 02/28/24 Loc: MRI Attending Dr: Zoey CHAMPION Ordering Physician: Zoey Vega Date of Service: 02/28/24 Procedure(s): MR hip LT w con Accession Number(s): [id number] cc: Mireille Varela [employer]; Zoey Vega The [address] [address] Patient Name: DESTINI STILL MRN: [id number] date: 1990 Sex: F Assigned Patient Location: MRI Current Patient Location: MRI Accession/Order Number: [id number] Exam Date: 02/28/2024 08:35 Report Date: 03/01/2024 07:42 At the request of: ZOEY VEGA Procedure: MR hip LT w con EXAMINATION: MR hip LT w con HISTORY: Left hip pain COMPARISON: No relevant comparison available. TECHNIQUE: A comprehensive examination was performed utilizing a varietyof imaging planes and imaging parameters to optimize visualization ofsuspected pathology. Images were obtained without and/or with IV contrast asindicated by type of examination. FINDINGS: FEMORAL HEAD: Tiny degenerative osteophytes along the articular margins.No fracture, dislocation, or abnormal marrow signal to suggest avascular necrosis. ACETABULUM: No fracture or significant arthropathy. OTHER BONES: Normal appearance of the visualized portion of the pelvis. LABRUM: Subtle step off along the undersurface margin of the superiorlabrum without convincing tear. EFFUSIONS: Large joint effusion with multiple loose bodies within thejoint capsule, largest is approximately 13 mm. BURSAE: No evidence of iliopsoas or trochanteric bursitis. TENDONS: Normal gluteus tendons, iliopsoas tendon, and hamstring origin. MUSCLES: No tear or strain. No inappropriate atrophy. OTHER: Negative. MR/MR hip LT w con IMPRESSION: 1. Large joint effusion containing multiple loose bodies. No appreciabledonor site(s). 2. Mild degenerative joint disease. 3. Subtle/small step-off along the undersurface margin of the superiorlabrum without convincing tear; remote injury/sequela of remote small tear is suspected. Electronically authenticated by: SHENG LIN Date: 03/01/2024 07:42 Dictated By: Sheng Lin M.D. Signed By:03/01/24 0744 DD/ 0742 TD/TT: Color Blender: us Generic External Data Provider IMG MRI PROCEDURE S Final Result documented in this encounter Visit Diagnoses Not on filedocumented in this encounter Care Teams Magnetic Tape Winder Relationship Specialty Start Date End Date Sergio Kirkland MD [address] [place] [phone] PCP - General Family Medicine 11/01/23 Mireille Varela NP [address] [place] [address] Referring Physician Nurse Practitioner 03/03/23 Mireille Varela NP [address] [place] [address] Nurse Practitioner Family Medicine 11/01/23 documented as of this encounter
--- OUTSIDE RECORDS SUMMARY | 2025-01-30 13:10 | XMS_ITS | Encounter Summary ---
Author Organization [facility] Address [address] [place] [address] Care Team Providers Care General Supervisor Name Role Phone Mireille Varela [employer] Unavailable [phone] Sergio Kirkland MD Primary Care Provider [phone] Mireille Varela [employer] Unavailable [phone] Encounter Details Date Type Department Care Team (Late st Contact Info) Description 03/01/2024 Orders Only [facility] [address] [address] Zoey Kay PA [address] [place] [address] [place] [address] Social History Tobacco Use Types Packs/Day Years [...] Visit [facility] [address] [place] [address] Mireille Varela NP [address] [place] [phone] documented as of this encounter Procedures Procedure Name Priority Date/Time Associated Diagnosis Comments MR HIP LEFT W IV CONTRAST Routine 03/01/2024 9:40 AM EDT documented in this encounter Results * MR hip left w IV contrast (03/01/2024 9:40 AM EDT) Anatomical Region Laterality Modality Lower Extremities, Hip Left Magnetic Resonance Zoey CHAMPION IMG MRI PROCEDURES F inal Result documented in this encounter Visit Diagnoses Not on filedocumented in this encounter Care Teams General Supervisor Relationship Specialty Start Date End Date Sergio Kirkland MD [address] [place] [phone] PCP - General Family Medicine 11/01/23 Mireille Varela NP [address] [place] [address] Referring Physician Nurse Practitioner 03/03/23 Mireille Varela NP [address] [place] [address] Nurse Practitioner Family Medicine 11/01/23 documented as of this encounter
--- OUTSIDE RECORDS SUMMARY | 2025-01-30 13:10 | XMS_ITS | Clinical Summary ---
Author Organization [facility] Address [address] [place] [address] Phone Care Team Providers Care Superintendent Construction Name Role Phone Unavailable Primary Care Provider Unavailabl e Active Problems Problem Noted Date Diagnosed Date Left hip pain 12/29/2024 Encounters Date Type Department Care Team Description 12/29/2024 9:45 AM EDT Office Visit [facility] [address] [place] [phone] Sheng Vanessa MD Left hip pain 12/29/2024 9:16 AM EDT - 12/29/2024 11:59 PM EDT Hospital Encounter [facility] [address] [place] [phone] Left hip pain Discharge Disposition: Home 12/29/2024 Travel 12/27/2024 Travel from Last 3 Months Social History Tobacco Use Types Packs/Day Years Used Date Smoking Tobacco: Never Assessed Comments Unknown Sex and Gender Information Value Date Recorded Sex Assigned at Not on file Legal Sex Female 11:14 AM EST Gender Identity Not on file Sexual Orientation Not on file Plan of Treatment Health Maintenance Due Date Last Done Comments HIV Screening 1990 Lipid Panel 1990 Yearly Adult Physical 1990 MMR Vaccines (1 of 1 - Standard series) 1990 Varicella Vaccines (1 of 2 - 13+ 2-dose series) 2002 Hepatitis B Vaccines (2 of 3 - 3-dose series) 09/11/2005 08/14/2005 Hepatitis C Screening 2007 Cervical Cancer Screening 2010 HPV/Cotest 2010 Pap Smear 2010 COVID-19 Vaccine ( season) 2024 Influenza Vaccine (Season Ended) 2025 06/27/2020, 06/01/2019, 06/25/2018, Additional history exists DTaP/Tdap/Td Vaccines (2 - Td or Tdap) 05/09/2025 05/09/2015 Zoster Vaccines (1 of 2) 2039 HIB Vaccines Aged Out No longer eligi ble based on patient's age to complete this topic HPV Vaccines Aged Out No longer eligi ble based on patient's age to complete this topic Hepatitis A Vaccines Aged Out No long er eligible based on patient's age to complete this topic IPV Vaccines Aged Out No longer eligi ble based on patient's age to complete this topic Meningococcal Vaccine Aged Out No bryan mirza eligible based on patient's age to complete this topic Pneumococcal Vaccine: Pediatrics and At-Risk Adult Patients Aged Out No longer eligible based on patient's age to complete this topic Rotavirus Vaccines Aged Out No longer eligible based on patient's age to complete this topic Procedures Procedure Name Priority Date/Time Associated Diagnosis Comments XR HIP LEFT WITH PELVIS WHEN PERFORMED 2 OR 3 VIEWS Routine 12/29/2024 9:36 AM EDT Left hip pain from Last 3 Months Results * XR hip left with pelvis when performed 2 or 3 views (12/29/2024 9:36 AM EDT) Anatomical Region Laterality Modality Musculoskeletal, Lower Extremities, Hip Left Computed Radiography 12/30/2024 8:23 AM EDT 12/30/2024 8:23 AM EDT Impressions 12/30/2024 8:22 AM EDT Mild degenerative changes bilateral hips. Signed by: Nathan Mayer 12/30/2024 8:22 AM Dictation workstation: [id number] Narrative 12/30/2024 8:22 AM EDT Interpreted By: Nathan Mayer, STUDY: XR HIP LEFT WITH PELVIS WHEN PERFORMED 2 OR 3 VIEWS INDICATION: Signs/Symptoms:pain. 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 No evidence of left hip fracture or lesion. Procedure Note Nathan Mayer MD - 12/30/2024 Interpreted By: Nathan Mayer, STUDY: XR HIP LEFT WITH PELVIS WHEN PERFORMED 2 OR 3 VIEWS INDICATION: Signs/Symptoms:pain. 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 No evidence of left hip fracture or lesion. IMPRESSION: Mild degenerative changes bilateral hips. Signed by: Nathan Mayer 12/30/2024 8:22 AM Dictation workstation: [employer] Sheng Vanessa MD IMG XR PROCEDURES Final R esult from Last 3 Months Insurance [employer]
--- OUTSIDE RECORDS SUMMARY | 2025-01-30 13:10 | XMS_ITS | Encounter Summary ---
Author Organization [facility] Address [address] [place] [address] Care Team Providers Care Legal Collector Name Role Phone Sergio Kirkland MD Primary Care Provider [phone] Mireille Varela TELEPHONE STATION REPAIRER Unavailable Sergio Kirkland MD Primary Care Provider [phone] Mireille Varela TELEPHONE STATION REPAIRER Unavailable [phone] Encounter Details Date Type Department Care Team (Late st Contact Info) Description 08/25/2023 Abstract [facility] [address] [place] [address] Mireille Varela, TELEPHONE STATION REPAIRER [address] [place] [address] Social History Tobacco Use Types Packs/Day Years Used Date Smoking Tobacco: Every Day Cigarettes Comments:11-20 cigarettes/da y Alcohol Use Standard Drinks/Week [...] 07/19/2025 9:40 AM EST Office Visit [facility] [address] [place] [address] Mireille Varela, ERNA [address] [place] [phone] documented as of this encounter Visit Diagnoses Not on filedocumented in this encounter Care Teams Legal Collector Relationship Specialty Start Date End Date Sergio Kirkland MD PCP - General Family Medicine 03/03/23 10/31/23 Sergio Kirkland MD [address] [place] [address] PCP - General Family Medicine 11/01/23 Mireille Varela NP [address] [place] [phone] Referring Physician Nurse Practitioner 03/03/23 Mireille Varela NP [address] [place] [phone] Nurse Practitioner Family Medicine 11/01/23 documented as of this encounter
[2025-01-30 13:31] LABS: Bilirubin Urine NEGATIVE (NEGATIVE); Blood Urine NEGATIVE (NEGATIVE); Clarity Urine CLEAR (CLEAR); Color Urine LT. YELLOW (YELLOW); Glucose Urine UA NEGATIVE (NEGATIVE); Ketones Urine NEGATIVE (NEGATIVE); Leukocyte Esterase Urine NEGATIVE (NEGATIVE); Nitrite Urine NEGATIVE (NEGATIVE); Protein Urine NEGATIVE (NEG/TRACE); Specific Gravity Urine 1.015 (1.005-1.025); Urobilinogen Urine 0.2 EU/dL (0.2-1.0); pH Urine 6.5 (5.0-9.0)
[2025-01-30 13:55] LABS: Urine Microscopic Indicated NO
[2025-01-30 13:57] LABS: Basophils Percent Auto 0.7 % (0.2-2.0); Eosinophils Absolute Auto 0.4 10^3/uL (0.0-0.7); Eosinophils Percent Auto 6.1 % (0.9-7.0); Hematocrit 38.1 % (36.0-48.0); Immature Granulocytes Abs Auto 0.01 10^3/uL (0.00-0.03); Immature Granulocytes Pct Auto 0.2 % (0.0-0.5); Lymphocytes Absolute Auto 2.2 10^3/uL (1.2-3.8); Lymphocytes Percent Auto 36.7 % (20.5-60.0); Mean Corpuscular HGB Conc 34.1 g/dL (29.9-35.2); Mean Corpuscular Hemoglobin 32.3 pg (26.7-34.0); Mean Corpuscular Volume 94.8 fL (81.0-99.0); Mean Platelet Volume 9.5 fL (9.5-13.5); Monocytes Absolute Auto 0.6 10^3/uL (0.3-0.8); Monocytes Percent Auto 9.9 % (1.7-12.0); Neutrophils Absolute Auto 2.7 10^3/uL (1.4-6.5); Neutrophils Percent Auto 46.4 % (43.0-75.0); Platelet Count 241 10^3/uL (150-450); Red Blood Count 4.02 10^6/uL (4.20-5.40); Red Cell Distribution Width 11.9 % (11.0-15.0); White Blood Count 5.9 10^3/uL (4.0-11.0)
[2025-01-30 14:19] LABS: Alanine Aminotransferase 19 U/L (14-59); Albumin Globulin Ratio 1.2; Albumin Level 3.4 g/dL (3.4-5.0); Alkaline Phosphatase 61 U/L (46-116); Anion Gap 8.8; Aspartate Amino Transferase 14 U/L (15-37); BUN Creatinine Ratio 14.3; Bilirubin Total 0.8 mg/dL (0.2-1.0); Calcium 8.8 mg/dL (8.5-10.1); Carbon Dioxide 31.3 mmol/L (21.0-32.0); Chloride 104 mmol/L (98-107); Chol HDL Ratio 1.9; Cholesterol 127 mg/dL (<=200); Estimated GFR (African America >60 (>=60 mL/min/1.73m^2); Estimated GFR (Non-African Ame >60 (>=60 mL/min/1.73m^2); Globulin 2.9 g/dL; Glucose 88 mg/dL (74-106); HDL Cholesterol 68 mg/dL (40-60); Potassium 4.1 mmol/L (3.5-5.1); Sodium 140 mmol/L (136-145); Thyroid Stimulating Hormone 1.509 uIU/mL (0.358-3.740); Total Protein 6.3 g/dL (6.4-8.2); Triglycerides 43 mg/dL (<=150); VLDL CHOLESTEROL 8.6 mg/dL
== END 2025-01-30 13:07 | disposition home or self-care (01) ==
LOC: LAB 13:06
PROVIDERS: PCP Nurse Practitioner; Visit Provider Nurse Practitioner
DX: Z00.00 Encounter for general adult medical examination without abnormal findings (principal); M25.562 Pain in left knee; G89.29 Other chronic pain
CPT/HCPCS: 73562; 80053; 80061; 81003; 84443; 85025